=== PATIENT | male | born 1935 | race Caucasian/White ===

== ENCOUNTER 2018-08-07 13:39 | Emergency (ER) | payer OTHER, MEDICAID ==
[~2018-08-07] VITALS: Ht 152.4 cm; Wt 73.0 kg
[2018-08-07 13:48] VITALS: BP 125/57
--- NOTE | 2018-08-07 14:02 | NUR ---
PT AMBULATED WITH WALKER TO ER BED 7
[2018-08-07 14:05] VITALS: BP 125/62
--- NOTE | 2018-08-07 14:15 | NUR ---
REFERRED FROM CLINIC FOR FURTHER EVALUATION TO BILATERAL LOWER EXTREMITIES REDNESS. PT WILL BE ADMITTED TO [facility]. BENNETT LEGS NOTED SWOLLEN. PT AMBULATES WITH WALKER. PT STATES PAIN 5/10 AT THIS TIME. UNABLE TO OBTAINED MEDICAL HISTORY; PT IS A POOR HISTORIAN.
--- NOTE | 2018-08-07 14:24 | NUR ---
DR. RIZO BEDSIDE EVALUATING PT
--- NOTE | 2018-08-07 15:00 | NUR ---
PT CONTINUING TO WALK AROUND DEPT DESPITE BEING ASKED TO RETURN TO ROOM. SECURITY CALLED.
--- NOTE | 2018-08-07 15:23 | NUR ---
SECURITY AT BEDSIDE. PT STATES "I WANT MY FOOT WRAPPED AT WANT TO LEAVE" MD AWARE.
--- NOTE | 2018-08-07 15:27 | NUR ---
PT ELOPED FROM FACILITY.
== END 2018-08-07 15:27 | disposition left against medical advice (07) ==
LOC: MED 13:39
DX: M79.605 Pain in left leg (principal); M79.604 Pain in right leg
CPT/HCPCS: 93971; 99284; Q0092

== ENCOUNTER 2018-08-26 10:27 | Inpatient (IN) | payer OTHER, MEDICAID ==
[~2018-08-26] VITALS: Ht 165.1 cm; Wt 73.5 kg
--- NOTE | 2018-08-26 10:27 | NUR ---
PATIENT BIBA TO BED 3 AT THIS TIME.
[2018-08-26 10:33] VITALS: BP 129/49
--- NOTE | 2018-08-26 10:33 | NUR ---
PT BIBA FROM [facility]. PER EMS PT BP AT FACILITY WAS 99/44 AND PT HAD BEEN WEAK AND DIZZY X2 DAYS. CURRENT BP 129/49. PT HAS CELLULITIS TO LT LEG. WOUND NOTED M48/M60 TANK DRIVER TO L CALF WITH SLOUGH ON WOUND BASE, MACERATED PERIWOUND, MACERATION NOTED TO L LEG. PER EMS, PT HAS A DAILY WOUND CARE AT THE FACILITY FOR PT. PT FULL CLEAR SPEECH. RT EYE REACTIVE TO LIGHT, BRISK 3 MM. NO LT EYE NOTED. EQUAL BENNETT STRENGTH TO UPPER AND LOWER EXTREMITIES. CLEAR EQUAL BENNETT LUNGS UPON AUSCULTATION. PT PLACED ON FULL PRECISION LATHE OPERATOR. ER TO EVALUATE PT.
--- NOTE | 2018-08-26 10:33 | NUR ---
Note undone in EDM - 08/26/18 at 1128 by MEDSM PT MONO FROM [facility] FOR HYPOTENSION. PER EMS PT BP AT FACILITY WAS 99/44 AND PT HAD BEEN WEAK AND DIZZY X2 DAYS. CURRENT BP 129/49. PT HAS CELLULITIS TO LT LEG. WOUND NOTED CIVIL DESIGN SPECIALIST TO L CALF WITH SLOUGH ON WOUND BASE, MACERATED PERIWOUND, MACERATION NOTED TO L LEG. PER EMS, PT HAS A DAILY WOUND CARE AT THE FACILITY FOR PT. PT FULL CLEAR SPEECH. PERRL BRISK 3 MM. EQUAL BENNETT STRENGTH TO UPPER AND LOWER EXTREMITIES. CLEAR EQUAL BENNETT LUNGS UPON AUSCULTATION. PT PLACED ON FULL ARMED CUSTOM PROTECTION OFFICER. ER TO EVALUATE PT.
--- NOTE | 2018-08-26 10:37 | NUR ---
DR COLBY AT BEDSIDE FOR PT EVALUATION
--- NOTE | 2018-08-26 10:45 | NUR ---
UNABLE TO OBTAIN URINE AFTER URETHRAL CATH. WILL TRY AGAIN LATER
--- NOTE | 2018-08-26 11:11 | NUR ---
RT AND LAB AT BEDSIDE
--- NOTE | 2018-08-26 11:25 | NUR ---
ULTRASOUND AT BEDSIDE
[2018-08-26 11:27] LABS: BASOPHILS % (AUTO) 0.3 % (0.0-2.0); HEMATOCRIT 35.4 % (36-52); HEMOGLOBIN 11.7 g/dL (12.0-18.0); LYMPHOCYTES # (AUTO) 0.6 K/uL (2.0-11.5); LYMPHOCYTES % (AUTO) 4.2 % (20.5-51.1); MEAN CORPUSCULAR HEMOGLOBIN 28 pg (27-31); MEAN CORPUSCULAR HGB CONC 33 g/dL (33-37); MEAN CORPUSCULAR VOLUME 85.4 fL (80-94); MONOCYTES # (AUTO) 0.9 K/uL (0.8-1.0); MONOCYTES % (AUTO) 6.5 % (1.7-9.3); PLATELET COUNT (AUTO) 390 K/uL (140-450); RED BLOOD CELL COUNT(AUTO) 4.14 MIL/uL (4.20-6.10); RED CELL DISTRIBUTION WIDTH 13.9 % (11.6-13.7); WHITE BLOOD COUNT (AUTO) 13.5 K/uL (4.8-10.8)
[2018-08-26 11:39] LABS: ACETONE, SERUM NEGATIVE (NEGATIVE)
--- NOTE | 2018-08-26 11:40 | NUR ---
WOUND CULTURE OBTAINED ORDERED TO L LOWER EXTREMITY. CALLED LAB FOR PICKUP
[2018-08-26 11:58] LABS: PROTHROMBIN TIME 10.9 secs (10.8-13.4)
[2018-08-26 12:06] LABS: ANION GAP 15.3 (8-16); CARBON DIOXIDE 25.2 mmol/L (21-32); CHLORIDE 93 mmol/L (98-107); GLUCOSE 114 mg/dL (74-106); POTASSIUM 4.5 mmol/L (3.5-5.1); SODIUM SERUM 129 mmol/L (136-145)
[2018-08-26 12:07] LABS: CREATININE 2.4 mg/dL (0.7-1.3); UREA NITROGEN, BLOOD 41 mg/dL (7-18)
--- NOTE | 2018-08-26 12:15 | NUR ---
UNABLE TO OBTAIN URINE AT THIS TIME
[2018-08-26] MEDS ORDERED: ATI.5 PO (12:24)
[2018-08-26] MEDS ORDERED: VITD1000 PO (12:24)
[2018-08-26] MEDS ORDERED: TRAM50TA1 PO (12:24)
[2018-08-26] MEDS ORDERED: VITA PO (12:24)
[2018-08-26] MEDS ORDERED: LISI10TA11 PO (12:24)
[2018-08-26] MEDS ORDERED: KEN.1C TP (12:24)
[2018-08-26] MEDS ORDERED: ZINC220C12 PO (12:24)
[2018-08-26] MEDS ORDERED: ASPI-1718 PO (12:24)
[2018-08-26] MEDS ORDERED: ATRO1TAB PO (12:24)
[2018-08-26] MEDS ORDERED: ZOLP10TA1 PO (12:24)
[2018-08-26] MEDS ORDERED: ACET-2619 PO (12:24)
[2018-08-26 12:29] LABS: C-REACTIVE PROTEIN QUANT 23.7 mg/dL (0.0-0.9)
[2018-08-26 12:30] LABS: URIC ACID 8.8 mg/dL (2.6-7.2)
[2018-08-26] MEDS ORDERED: NACL 0.9% 1,000 ML IV SCH (12:38)
[2018-08-26] MEDS ORDERED: MORPHINE SULFATE 2 MG/ML SYR IVP PRN (12:40)
[2018-08-26] MEDS ORDERED: ZOLPIDEM 5 MG TAB PO PRN (12:40)
[2018-08-26] MEDS ORDERED: DOCUSATE SODIUM 100 MG GELCAP PO PRN ×2 (12:40)
[2018-08-26] MEDS ORDERED: ONDANSETRON 4 MG/2 ML VIAL IM/IVP PRN ×2 (12:40)
[2018-08-26] MEDS ORDERED: ACETAMINOPHEN 325 MG TAB PO PRN ×2 (12:40)
[2018-08-26] MEDS ORDERED: HYDROcodone/APAP 5/325 MG 1 TAB TAB PO PRN ×2 (12:40)
[2018-08-26] MEDS ORDERED: LORazepam 2 MG/ML VIAL IM/IVP PRN (12:40)
[2018-08-26 12:48] LABS: ASPARTATE AMINOTRANSFERASE 34 U/L (15-37); TOTAL BILIRUBIN 0.5 mg/dL (0.0-1.0)
[2018-08-26 12:49] LABS: ALBUMIN 2.3 g/dL (3.4-5.0)
--- NOTE | 2018-08-26 13:00 | NUR ---
UNABLE TO OBTAIN URINE THROUGH CATH, DR COLBY AWARE
[2018-08-26] MEDS ORDERED: PIPERACILLIN/TAZOBACTAM 3.375 GM in DEXTROSE 5% 50 ML IV ONE (13:15)
--- NOTE | 2018-08-26 13:20 | NUR ---
Patient will be admitted to care of Dr Tan. Admited to TELE. Will go to room 121 A. Belongings list completed. Report to ISIS DE ANDA.
[2018-08-26 13:30] VITALS: BP 136/58
--- NOTE | 2018-08-26 13:30 | NUR ---
PATIENT WAS TRANSFERRED FROM ED IN [facility]. REPORT WAS GIVEN AT BEDSIDE. VS WAS TAKEN. MRSA WAS SWABBED. VISE HAND WAS PLACED. PATIENT WAS AWAKE, ABLE TO ANSWER QUESTIONS APPROPRIATELY, ORIENTATION X 3. RESPIRATION EVEN, UNLABOR ON ROOM AIR. SKIN DRY AND WARM. IV PATENT AND INTACT. PATIENT WAS ORIENTED TO ROOM, STAFF, AND CALL LIGHT. PLAN OF CARE WAS DISCUSSED WITH PATIENT. BED AT LOW POSITION, SIDE RAILS UP. CALL LIGHT WITHIN REACH.
[2018-08-26] MEDS ORDERED: PIPERACILLIN/TAZOBACTAM 3.375 GM VIAL IV ONE (13:54)
[2018-08-26] MEDS: NACL 0.9% 1,000 ML IV SCH (14:05)
[2018-08-26] MEDS ORDERED: traMADol 50 MG TAB PO PRN (14:05)
[2018-08-26] MEDS ORDERED: ACETAMINOPHEN EXTRA STRENGTH 500 MG TAB PO PRN (14:05)
--- NOTE | 2018-08-26 14:18 | NUR ---
URINE SAMPLE WAS COLLECTED AND SENT TO LAB PER ORDER
[2018-08-26 14:23] LABS: THYROID STIMULATING HORMONE 2.42 uIU/mL (0.34-3.74)
[2018-08-26] MEDS ORDERED: CLINICAL MONITORING MC PRN (14:35)
[2018-08-26 15:17] LABS: APPEARANCE,URINE HAZY (CLEAR); BILIRUBIN,URINE NEGATIVE (NEGATIVE); BLOOD, URINE 1+ (NEGATIVE); COLOR,URINE YELLOW (YELLOW); LEUKOCYTE ESTERASE ,URINE 1+ (NEGATIVE); NITRITE, URINE NEGATIVE (NEGATIVE); PH,URINE 5.5 (5.0-9.0); UGLUCOSE NEGATIVE (NEGATIVE)
[2018-08-26 15:22] LABS: BARBITURATE, URINE NEG. ng/ml (NEG <=200); BENZODIAZEPINE, URINE NEG. ng/mL (NEG <=200); CANNABINOID, URINE NEG. ng/mL (NEG <=50); COCAINE, URINE NEG. ng/mL (NEG <=300); OPIATE, URINE NEG. ng/mL (NEG <=2000); PHENCYCLIDINE SCREEN,URINE NEG. ng/mL (NEG <=25)
[2018-08-26 16:00] VITALS: BP 107/39
--- NOTE | 2018-08-26 16:00 | NUR ---
PATIENT WAS SLEEPING COMFORTABLY. RESPIRATION EVEN, UNLABOR ON ROOM AIR. DENIED PAIN AT THIS TIME. NO DISTRESS NOTED AT THIS TIME
[2018-08-26] MEDS ORDERED: DIPHENOXYLATE HCL PO SCH (17:00)
[2018-08-26] MEDS ORDERED: ATROPINE PO SCH (17:00)
[2018-08-26] MEDS: DIPHENOXYLATE /ATROPINE 2.5 MG TAB PO SCH (17:25)
[2018-08-26] MEDS: LORazepam 0.5 MG TAB PO SCH (17:26)
[2018-08-26] MEDS ORDERED: PIPER/TAZO 3.375GM/D5W PREMIX 50 ML IV SCH (18:00)
--- NOTE | 2018-08-26 18:09 | NUR ---
PATIENT WAS SLEEPING COMFORTABLY. RESPIRATION EVEN, UNLABOR NO ROOM AIR. IV PATENT AND INTACT. NO DISTRESS NOTED AT THIS TIME
--- NOTE | 2018-08-26 19:21 | NUR ---
ENDORSEMENT GIVEN TO RADIOTELEPHONE OPERATOR NURSE. PATIENT IS STABLE AT THIS TIME
--- NOTE | 2018-08-26 19:22 | NUR ---
RECEIVED REPORT FROM AM NURSE. PT SLEEPING IN BED. BREATHING UNLABORED ON ROOM AIR. LEFT WRIST 22G INTACT AND INFUSING WELL. PT ON FALL PRECAUTIONS, BED IN LOWEST POSITION, BED ALARM ON. URINAL AT BEDSIDE. CALL LIGHT WITHIN REACH. WILL CONTINUE TO MONITOR.
[2018-08-26 20:05] VITALS: BP 115/88
[2018-08-26] MEDS: PIPER/TAZO 2.25GM/D5W PREMIX 50 ML IV SCH (21:38)
--- NOTE | 2018-08-26 21:38 | NUR ---
MEDICATIONS GIVEN. PT TOLERATED WELL. IT WAS EXPLAINED TO PT THAT HE IS ON BEDREST AND SHOULD USE URINAL WHEN HE NEEDS TO URINATE. PT IS REFUSING TO USE URINAL. CHUCKS ON PT LEFT LEG CHANGED DUE TO SATURATION FROM WEEPING. PT REPOSITIONED FOR COMFORT. CALL LIGHT WITHIN REACH.
[2018-08-26] MEDS: ZOLPIDEM 10 MG TAB PO SCH (21:39)
[2018-08-26] MEDS: TRIAMCINOLONE 0.1% CRM 15 GM TUBE TP SCH (21:41)
--- NOTE | 2018-08-27 00:25 | NUR ---
VITALS TAKEN. PT SLEEPING, BREATHING UNLABORED ON ROOM AIR. NO VISIBLE SIGNS OF DISTRESS.
[2018-08-27 00:30] VITALS: BP 96/54
--- NOTE | 2018-08-27 02:25 | NUR ---
ROUNDED ON PT. PT SLEEPING. NO VISIBLE SIGNS OF DISTRESS.
[2018-08-27] MEDS: NACL 0.9% 1,000 ML IV SCH ×2 (03:39→18:56)
[2018-08-27 04:00] VITALS: BP 131/42
--- NOTE | 2018-08-27 04:25 | NUR ---
VITALS TAKEN. PT IS SLEEPING BUT IS EASILY AWAKEN.
[2018-08-27] MEDS: PIPER/TAZO 2.25GM/D5W PREMIX 50 ML IV SCH ×3 (04:46→17:19)
[2018-08-27 05:53] LABS: CARBON DIOXIDE 22.3 mmol/L (21-32); CHLORIDE 98 mmol/L (98-107); CREATININE 1.4 mg/dL (0.7-1.3); GLUCOSE 97 mg/dL (74-106); POTASSIUM 4.3 mmol/L (3.5-5.1); SODIUM SERUM 133 mmol/L (136-145); UREA NITROGEN, BLOOD 33 mg/dL (7-18)
[2018-08-27 06:00] LABS: MAGNESIUM 1.8 mg/dL (1.8-2.4)
[2018-08-27 06:04] LABS: CHOL/HDL RATIO 2.4 (1-4.5)
[2018-08-27 06:59] LABS: BASOPHILS % (AUTO) 0.1 % (0.0-2.0); EOSINOPHILS % (AUTO) 0.1 % (0.0-4.0); HEMATOCRIT 30.7 % (36-52); HEMOGLOBIN 10.3 g/dL (12.0-18.0); LYMPHOCYTES # (AUTO) 0.7 K/uL (2.0-11.5); LYMPHOCYTES % (AUTO) 5.8 % (20.5-51.1); MEAN CORPUSCULAR HEMOGLOBIN 28 pg (27-31); MEAN CORPUSCULAR HGB CONC 34 g/dL (33-37); MEAN CORPUSCULAR VOLUME 84.8 fL (80-94); MONOCYTES % (AUTO) 8.8 % (1.7-9.3); NEUTROPHILS # (AUTO) 9.7 K/uL (1.8-7.7); NEUTROPHILS % (AUTO) 85.2 % (42.2-75.2); PLATELET COUNT (AUTO) 336 K/uL (140-450); RED BLOOD CELL COUNT(AUTO) 3.62 MIL/uL (4.20-6.10); WHITE BLOOD COUNT (AUTO) 11.3 K/uL (4.8-10.8)
--- NOTE | 2018-08-27 07:15 | NUR ---
ENDORSED PT TO AM NURSE, PT IN STABLE CONDITION AT THIS TIME.
--- NOTE | 2018-08-27 07:30 | NUR ---
PATIENT WAS SLEEPING COMFORTABLY, EASILY AROUSABLE BY NAME. RESPIRATION EVEN, UNLABOR ON ROOM AIR. SKIN DRY AND WARM. IV PATENT AND INTACT. DENIED PAIN AT THIS TIME. PLAN OF CARE WAS DISCUSSED WITH PATIENT. BED AT LOW POSITION, SIDE RAILS UP. CALL LIGHT WITHIN REACH
[2018-08-27 08:00] VITALS: BP 107/62
[2018-08-27] MEDS: TRIAMCINOLONE 0.1% CRM 15 GM TUBE TP SCH (09:00)
--- NOTE | 2018-08-27 09:12 | NUR ---
PATIENT HAS BEEN SCREENED AND CATEGORIZED HIGH NUTRITION RISK. PATIENT WILL BE SEEN WITHIN 1-2 DAYS OF ADMISSION. 08/26/18-08/28/[address]
[2018-08-27] MEDS: CHOLECALCIFEROL 1,000 IU TAB PO SCH (09:16)
[2018-08-27] MEDS: LISINOPRIL 10 MG TAB PO SCH (09:17)
[2018-08-27] MEDS: LACTOBACILLUS RHAMNOSUS GG 1 EACH CAP PO SCH (09:17)
[2018-08-27] MEDS: LORazepam 0.5 MG TAB PO SCH ×3 (09:17→16:27)
[2018-08-27] MEDS: ASPIRIN 81 MG TAB.CHEW PO SCH (09:17)
[2018-08-27] MEDS: ZINC SULF 220 MG CAP PO SCH (09:17)
[2018-08-27] MEDS: DIPHENOXYLATE /ATROPINE 2.5 MG TAB PO SCH ×3 (09:17→16:27)
[2018-08-27] MEDS: VITAMIN A 10,000 IU CAPLF PO SCH (09:18)
--- NOTE | 2018-08-27 10:00 | NUR ---
DR. STOCKTON WAS MADE AWARE PT HAD AN EPISODE A FLUTTER AND WENT BACK TO SR. OK TO CONTINUE TO MONITOR
--- NOTE | 2018-08-27 11:05 | NUR ---
WOUND CARE EVALUATION NOTE: REASON FOR EVALUATION: LLE WOUND SKIN ASSESSMENT DONE WITH THIS 82 Y/O FEMALE PT ADMITTED FROM [facility] TO [facility] WITH INITIAL DX OF LLE PAIN. PAST MEDICAL HX INCLUDES CHRONIC VENOUS STASIS ULCER AND ULTROSOUND DONE WITH RLE PAD. ALL ABOVE INFORMATION OBTAINED FROM ADMISSION H&P. PT IS AWAKE. SKIN IS WARM AND DRY, BLE NO HAIR GROWTH, +2 EDEMA TO LEFT LOWER LEG.BILATERAL DORSAL PEDAL PULSES PRESENT AND DIMINISHED. INCONTINENT OF BM X1 DURING ASSESSMENT. PLAN OF CARE DISCUSSED WITH DR. MARTINEZ, PRIMARY RN AND PT. INTEGUMENTARY: -BILATERAL HEELS DRY STABLE SCABS, MENDOZA-WOUND SKIN INTACT. 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 - LEFT LE WOUND CLEANSE WITH NS, PAT DRY, APPLY XEROFORM DRESSING, COVER WITH DRY DRESSING, WRAP WITH KERLIX ROLLS AND SECURE WITH TAPE Q M-W-F AND PRN IF SOILING, MONITOR PLACEMENT OF DRESSING Q SHIFT -APPLY HEEL PROTECTORS TO RIGHT HEEL AT ALL TIMES -OFFLOAD BILATERAL HEELS BY PLACING PILLOWS UNDER CALVES UNLESS OTHERWISE CONTRAINDICATED -PRESSURE REDISTRIBUTION SURFACE THERAPY BY POSITIONING PILLOWS -TURN AND REPOSITION Q2H, OFFLOAD SACRALCOCCYX BY TURNING RIGHT AND LEFT -CONTINUE TO FOLLOW RD RECOMMENDATIONS ALL ABOVE RECOMMENDATIONS DISCUSSED WITH PRIMARY RN PLEASE CONTACT WOUND CARE NURSE FOR ANY QUESTION AND CHANGE OF WOUND CONDITION.
[2018-08-27 12:00] VITALS: BP 152/54
--- NOTE | 2018-08-27 14:25 | NUR ---
08/27/18 RD INITIAL ASSESSMENT COMPLETED PLEASE REFER TO NUTRITION ASSESSMENT UNDER CARE ACTIVITY FOR ESTIMATED NUTRITIONAL NEEDS. 1. CONTINUE CARDIAC DIET TOLERATED 2. ENCOURAGED PT TO INCREASE FOOD INTAKE DURING HOSPITAL STAY 3. RD TO FOLLOW-UP 2-3 DAYS, HIGH RISK DEVIN CAAL, BENJAMIN
[2018-08-27 16:00] VITALS: BP 101/47
--- NOTE | 2018-08-27 16:00 | NUR ---
PATIENT WAS SLEEPING COMFORTABLY. RESPIRATION EVEN, UNLABOR ON ROOM AIR. PATIENT HAD FEVER 100.6, WILL NOTIFY .
[2018-08-27] MEDS ORDERED: ACETAMINOPHEN 325 MG TAB PO PRN (16:15)
--- NOTE | 2018-08-27 16:30 | NUR ---
DR. STOCKTON WAS MADE AWARE PATIENT IS HAVING FEVER. ORDER WAS RECEIVED. ICE PACKS WERE APPLY TO FOREHEAD
--- NOTE | 2018-08-27 18:00 | NUR ---
PATIENT WAS SLEEPING COMFORTABLY. RESPIRATION EVEN, UNLABOR ON ROOM AIR. NO DISTRESS NOTED AT THIS TIME
--- NOTE | 2018-08-27 19:14 | NUR ---
ENDORSEMENT GIVEN TO CHEMICAL LABORATORY ASSISTANT NURSE. PATIENT IS STABLE AT THIS TIME
--- NOTE | 2018-08-27 19:15 | NUR ---
REPORT RECEIVED FROM AM NURSE. PT SITTING IN BED WATCHING TV. NO C/O DISTRESS, ON ROOM AIR. PT LEFT 22 G INTACT AND INFUSING WELL. ON FALL PRECAUTIONS, BED IN LOW POSITION, BED ALARM ON. PT LEFT LEG WRAPPED, DRESSING DRY AND INTACT. CALL LIGHT WITHIN REACH.
[2018-08-27 20:00] VITALS: BP_SYST 109; BP_SYST 134; BP_DIAS 58
[2018-08-27] MEDS: ZOLPIDEM 10 MG TAB PO SCH (20:20)
--- NOTE | 2018-08-27 20:20 | NUR ---
MEDICATION GIVEN. PT TOLERATED WELL.
--- NOTE | 2018-08-27 22:30 | NUR ---
ROUNDED ON PT. PT SLEEPING, NO VISIBLE SIGNS OF DISTRESS. PT SNORING.
[2018-08-27] MEDS ORDERED: VANCOMYCIN PER PHARMACY MC PRN (22:35)
[2018-08-27] MEDS ORDERED: VANCOMYCIN 1,000 MG in DEXTROSE 5% 250 ML IV SCH (23:30)
[2018-08-28 00:05] VITALS: BP 134/58
--- NOTE | 2018-08-28 00:45 | NUR ---
VITALS TAKEN. PT SLEEPING BUT EASILY AROUSABLE. NO C/O DISCOMFORT.
[2018-08-28] MEDS ORDERED: VANCOMYCIN 1,000 MG VIAL ONE (03:15)
--- NOTE | 2018-08-28 03:32 | NUR ---
ROUNDED ON PT. PT SLEEPING, BREATHING EQUAL AND UNLABORED.
[2018-08-28 04:00] VITALS: BP 118/49
[2018-08-28 06:45] LABS: BASOPHILS % (AUTO) 0.6 % (0.0-2.0); EOSINOPHILS # (AUTO) 0.3 K/uL (0-0.4); EOSINOPHILS % (AUTO) 4.1 % (0.0-4.0); HEMATOCRIT 31.3 % (36-52); HEMOGLOBIN 10.6 g/dL (12.0-18.0); LYMPHOCYTES # (AUTO) 0.9 K/uL (2.0-11.5); LYMPHOCYTES % (AUTO) 11.8 % (20.5-51.1); MEAN CORPUSCULAR HEMOGLOBIN 29 pg (27-31); MEAN CORPUSCULAR HGB CONC 34 g/dL (33-37); MEAN CORPUSCULAR VOLUME 85.4 fL (80-94); MONOCYTES # (AUTO) 0.8 K/uL (0.8-1.0); NEUTROPHILS # (AUTO) 5.4 K/uL (1.8-7.7); NEUTROPHILS % (AUTO) 72.5 % (42.2-75.2); PLATELET COUNT (AUTO) 349 K/uL (140-450); RED BLOOD CELL COUNT(AUTO) 3.67 MIL/uL (4.20-6.10); RED CELL DISTRIBUTION WIDTH 14.2 % (11.6-13.7); WHITE BLOOD COUNT (AUTO) 7.4 K/uL (4.8-10.8)
[2018-08-28 06:49] LABS: CHLORIDE 100 mmol/L (98-107); CREATININE 1.1 mg/dL (0.7-1.3); GLUCOSE 128 mg/dL (74-106); SODIUM SERUM 134 mmol/L (136-145); UREA NITROGEN, BLOOD 23 mg/dL (7-18)
[2018-08-28 07:00] LABS: MAGNESIUM 1.6 mg/dL (1.8-2.4); PHOSPHORUS 2.6 mg/dL (2.5-4.9)
--- NOTE | 2018-08-28 07:05 | NUR ---
ENDORSED PT TO AM NURSE. PT IN STABLE CONDITION.
--- NOTE | 2018-08-28 07:40 | NUR ---
RECEIVED HAND OFF REPORT FROM AUTOMOTIVE GLAZIER NURSE PT IS AWAKE IN BED. PT APPEARS STABLE AND IN NO APPARENT DISTRESS. ALL SAFETY MEASURES ARE IN PLACE WILL CONTINUE TO MONITOR.
[2018-08-28 08:00] VITALS: BP 138/62
[2018-08-28] MEDS: NACL 0.9% 1,000 ML IV SCH ×2 (08:06→23:04)
[2018-08-28] MEDS: VITAMIN A 10,000 IU CAPLF PO SCH (09:00)
--- NOTE | 2018-08-28 09:05 | NUR ---
FREQUENT ROUNDING ON PT PT IS STABLE AND IN NO APPARENT DISTRESS. ALL SAFETY MEASURES ARE IN PLACE. WILL CONTINUE TO MONITOR.
--- NOTE | 2018-08-28 09:30 | NUR ---
PT REFUSED HEPARIN INJECTION. USED GEOSPATIAL ENGINEER PHONE TO INFORM PT OF MEDICATION, ADVERSE AFFECTS AND RISKS IF NOT TAKING MEDICATION. PT STATED THAT HE WANTS A WALKER
[2018-08-28] MEDS: LISINOPRIL 10 MG TAB PO SCH (10:05)
[2018-08-28] MEDS: LORazepam 0.5 MG TAB PO SCH ×3 (10:05→17:39)
[2018-08-28] MEDS: LACTOBACILLUS RHAMNOSUS GG 1 EACH CAP PO SCH (10:05)
[2018-08-28] MEDS: DIPHENOXYLATE /ATROPINE 2.5 MG TAB PO SCH ×3 (10:05→17:39)
[2018-08-28] MEDS: ZINC SULF 220 MG CAP PO SCH (10:06)
[2018-08-28] MEDS: CHOLECALCIFEROL 1,000 IU TAB PO SCH (10:06)
[2018-08-28] MEDS: ASPIRIN 81 MG TAB.CHEW PO SCH (10:06)
[2018-08-28] MEDS ORDERED: MAGNESIUM OXIDE 400 MG TAB PO SCH (11:00)
--- NOTE | 2018-08-28 11:19 | NUR ---
FREQUENT ROUNDING ON PT PT IS STABLE AND IN NO APPARENT DISTRESS. ALL SAFETY MEASURES ARE IN PLACE. WILL CONTINUE TO MONITOR,
[2018-08-28 12:00] VITALS: BP 105/56
--- NOTE | 2018-08-28 13:08 | NUR ---
FREQUENT ROUNDING ON PT PT IS AWAKE IN BED PT IS STABLE AND IN NO APPARENT DISTRESS. ALL SAFETY MEASURES ARE IN PLACE WILL CONTINUE TO MONITOR.
--- NOTE | 2018-08-28 15:25 | NUR ---
FREQUENT ROUNDING PT IS AWAKE IN BED PT APPEARS STABLE AND IN NO APPARENT DISTRESS. ALL SAFETY MEASURES ARE IN PLACE AND WILL CONTINUE TO MONITOR.
[2018-08-28 16:00] VITALS: BP 123/56
--- NOTE | 2018-08-28 17:57 | NUR ---
LAB CALLED WITH CRITICAL RESULT FOR ESBL OF THE URINE AND PSEUDOMONAS AERUGINOSA OF THE WOUND. INFORMED DR. MARTINEZ AND DR. JOHNSON. INFORMED CHARGE NURSE OF POSITIVE RESULTS AND PLACED PT ON CONTACT PRECAUTIONS.
[2018-08-28] MEDS ORDERED: PIPER/TAZO 3.375GM/D5W PREMIX 50 ML IV SCH (18:00)
--- NOTE | 2018-08-28 19:32 | NUR ---
RECIEVED PT.AWAKE ON BED ,NID ,IV SITE DRY AND INTACT ,WITH LLE WOUND DRESSING DRY AND INTACT .V/S WNL .BED IN LOW POSITION , SIDERAILS UPX2 , CALL LIGHT WITHIN REACH ,WILL CONTINUE TO MONITOR.
--- NOTE | 2018-08-28 19:32 | NUR ---
ENDORSED PT TO ZINC PLATING MACHINE OPERATOR NURSE PT IS STABLE AND IN NO APPARENT DISTRESS. ALL SAFETY MEASURES ARE IN PLACE.
[2018-08-28 20:00] VITALS: BP 132/83
--- NOTE | 2018-08-28 21:00 | NUR ---
HEPARIN SQ REFUSED BUT IT IS ALREADY SCANNED IN EMAR ,REFUSAL OF HEPARIN INFORMED TO CHARGE BONITA WHITNEY, WILL CONTINUE TO MONITOR ,CALL LIGHT WITHINN REACH.
--- NOTE | 2018-08-28 22:00 | NUR ---
MADE ROUND, RESTING ON BED , NO COMPLAIN MADE AT THIS TIME ,CALL LIGHT WITHIN REACH .
[2018-08-28] MEDS: ZOLPIDEM 10 MG TAB PO SCH (22:20)
[2018-08-28] MEDS: MEROPENEM 1,000 MG in NACL 0.9% 100 ML IV SCH (22:57)
[2018-08-28] MEDS ORDERED: MEROPENEM 500 MG VIAL IV ONE ×2 (22:58→23:06)
[2018-08-28] MEDS ORDERED: VANCOMYCIN 1,000 MG in DEXTROSE 5% 250 ML IV SCH (23:00)
[2018-08-29] VITALS: BP 130/70
--- NOTE | 2018-08-29 | NUR ---
MADE ROUNDS ,PT IS NOT IN DISTRESS ,IVF INFUSING WELL ,NO COMPLAIN MADE AT THIS TIME .CALL LIGHT WITHIN REACH.
--- NOTE | 2018-08-29 02:00 | NUR ---
MADE ROUNDS , PT SLEEPING ,CALL LIGHT WITHIN REACH.
[2018-08-29 04:00] VITALS: BP 125/80
--- NOTE | 2018-08-29 04:00 | NUR ---
MADE ROUNDS .NID , NO COMPLAIN MADE AT THIS TIME ,CALL LIGHT WITHIN REACH .IVF INFUSING WELL.
[2018-08-29] MEDS ORDERED: MEROPENEM 1,000 MG VIAL IV ONE (06:29)
--- NOTE | 2018-08-29 06:30 | NUR ---
COMPLAINING OF GAS PAIN , S/E BY FREDERICK ,MADE NEW ORDER. WILL CONTINUE TO MONITOR ,CALL LIGHT WITHIN REACH.
[2018-08-29] MEDS: MEROPENEM 1,000 MG in NACL 0.9% 100 ML IV SCH ×3 (06:34→20:16)
[2018-08-29] MEDS ORDERED: SIMETHICONE 80 MG TAB.CHEW PO SCH (07:00)
[2018-08-29] MEDS ORDERED: BISACODYL 5 MG TABEC PO SCH (07:00)
--- NOTE | 2018-08-29 07:15 | NUR ---
ENDORSED TO AM SHIFT FOR CONTINUITY OF CARE.
--- NOTE | 2018-08-29 07:16 | NUR ---
RECEIVED ENDORSEMENT FROM SPACE OFFICER NURSE. PATIENT IS AAOX2, LIBYAN SPEAKING. RESPIRATIONS ARE EVEN AND UNLABORED ON ROOM AIR. PATIENT DENIES ANY PAIN AT THIS TIME. LEFT WRIST 22G INTACT, PATENT, AND INFUSING IVF. PLAN OF CARE WAS REVIEWED WITH PATIENT. PATIENT VERBALIZED UNDERSTANDING. SAFETY MEASURES IN PLACE, CALL LIGHT WITHIN REACH.
[2018-08-29 07:31] LABS: ANION GAP 9.7 (8-16); CHLORIDE 100 mmol/L (98-107); CREATININE 0.8 mg/dL (0.7-1.3); GLUCOSE 134 mg/dL (74-106); POTASSIUM 3.7 mmol/L (3.5-5.1); SODIUM SERUM 134 mmol/L (136-145); UREA NITROGEN, BLOOD 11 mg/dL (7-18)
[2018-08-29 07:33] LABS: MAGNESIUM 1.4 mg/dL (1.8-2.4); PHOSPHORUS 2.1 mg/dL (2.5-4.9)
[2018-08-29 07:35] LABS: BASOPHILS % (AUTO) 0.3 % (0.0-2.0); EOSINOPHILS # (AUTO) 0.1 K/uL (0-0.4); EOSINOPHILS % (AUTO) 1.4 % (0.0-4.0); HEMATOCRIT 33.4 % (36-52); HEMOGLOBIN 11.3 g/dL (12.0-18.0); LYMPHOCYTES # (AUTO) 0.7 K/uL (2.0-11.5); LYMPHOCYTES % (AUTO) 12.9 % (20.5-51.1); MEAN CORPUSCULAR HEMOGLOBIN 29 pg (27-31); MEAN CORPUSCULAR HGB CONC 34 g/dL (33-37); MEAN CORPUSCULAR VOLUME 84.3 fL (80-94); MONOCYTES # (AUTO) 0.6 K/uL (0.8-1.0); MONOCYTES % (AUTO) 11.8 % (1.7-9.3); NEUTROPHILS # (AUTO) 3.9 K/uL (1.8-7.7); NEUTROPHILS % (AUTO) 73.6 % (42.2-75.2); PLATELET COUNT (AUTO) 347 K/uL (140-450); RED BLOOD CELL COUNT(AUTO) 3.96 MIL/uL (4.20-6.10); RED CELL DISTRIBUTION WIDTH 13.7 % (11.6-13.7); WHITE BLOOD COUNT (AUTO) 5.3 K/uL (4.8-10.8)
[2018-08-29 08:00] VITALS: BP 157/61
[2018-08-29] MEDS ORDERED: MAG SULF 2000 MG/WATER PREMIX 50 ML IV ONE (08:10)
--- NOTE | 2018-08-29 08:43 | NUR ---
CONTACTED FRANCISCA MCQUEEN AT [phone], SPOKE TO MOHSEN, SHE SAID NEISHA (MANAGER TECHNICAL SUPPORT) IS NOT AVAILABLE AT THIS TIME. PROVIDED ME FAX NUMBER [phone] TO SEND ALL CLINICALS.
[2018-08-29] MEDS: CHOLECALCIFEROL 1,000 IU TAB PO SCH (08:47)
[2018-08-29] MEDS: ASPIRIN 81 MG TAB.CHEW PO SCH (08:47)
[2018-08-29] MEDS: LACTOBACILLUS RHAMNOSUS GG 1 EACH CAP PO SCH (08:48)
[2018-08-29] MEDS: LORazepam 0.5 MG TAB PO SCH ×3 (08:49→17:44)
[2018-08-29] MEDS: VITAMIN A 10,000 IU CAPLF PO SCH (08:49)
[2018-08-29] MEDS: LISINOPRIL 10 MG TAB PO SCH (08:49)
[2018-08-29] MEDS: ZINC SULF 220 MG CAP PO SCH (08:49)
[2018-08-29] MEDS ORDERED: SIMETHICONE 80 MG TAB.CHEW PO PRN (09:00)
--- NOTE | 2018-08-29 09:00 | NUR ---
ADMINISTERED SCHEDULED MEDICATIONS. PATIENT TOLERATED WELL. NO OTHER NEEDS AT THIS TIME.
--- NOTE | 2018-08-29 11:20 | NUR ---
CONTACTED BECCA GALLARDO AT [phone], SPOKE TO RUTH. MADE HER AWARE OF THE DC PLAN. ALL CLINICALS FAXED TO [phone].
--- NOTE | 2018-08-29 11:20 | NUR ---
PATIENT RESTING IN BED. DENIES ANY PAIN, NO OTHER NEEDS AT THIS TIME.
--- NOTE | 2018-08-29 13:05 | NUR ---
ADMINISTERED SCHEDULED MEDICATIONS. PATIENT TOLERATED WELL. NO OTHER NEEDS AT THIS TIME.
--- NOTE | 2018-08-29 13:05 | NUR ---
NEW ORDERS FOR ANTIBIOTICS FAXED TO BECCA GALLARDO AT [phone]. CALLED JAY OF [employer] AT [phone], SHE SAID SHE WILL RELAY THE MESSAGE TO RUTH.
--- NOTE | 2018-08-29 14:15 | NUR ---
PICC LINE CONSENT AND PROCEDURE EXPLAINED TO PATIENT BY DR. KELLY. PATIENT STATED THAT GODMOTHER WILL DECIDE FOR HIM. TRYING TO GET IN CONTACT WITH HER. WILL FOLLOW UP. NO OTHER NEEDS AT THIS TIME.
--- NOTE | 2018-08-29 14:28 | NUR ---
PER RUTH OF [facility], THEY ARE ABLE TO TAKE THE PATIENT TOMORROW 08/29/18. PATIENT WILL GO TO ROOM 2B AND ACCEPTING DOCTOR WILL WILL DR. KWONG. PER RUTH IF WILL HAVE PROBLEMS WITH TRANSPORTATION, WE CAN CALL HER ON HER CELLPHONE [phone]. CHARGE NURSE TOM MADE AWARE.
--- NOTE | 2018-08-29 15:40 | NUR ---
RECEIVED CALL FROM PICC LINE ISIS RIVAS, REQUESTED CLARIFICATION IF PICC OR MIDLINE. CALLED DR. STOCKTON TO CLARIFY. PATIENT IS SLEEPING, EASILY AROUSABLE. DENIES ANY PAIN. NO OTHER NEEDS AT THIS TIME, WILL CONTINUE TO MONITOR.
[2018-08-29 16:00] VITALS: BP 157/67
--- NOTE | 2018-08-29 17:15 | NUR ---
POWER OF FOLLOW UP CLERK NOBLE (GODMOTHER) ARRIVED TO SIGN CONSENT FOR PICC. NO OTHER NEEDS AT THIS TIME.
--- NOTE | 2018-08-29 18:30 | NUR ---
PICC LINE NURSE HERE TO INSERT PICC. TIME OUT WAS COMPLETED. PATIENT IS AWARE AND AGREES TO PROCEDURE. NO OTHER NEEDS AT THIS TIME.
--- NOTE | 2018-08-29 19:29 | NUR ---
ENDORSED TO MARKETING OPERATIONS COORDINATOR NURSE FOR CONTINUITY OF CARE. PATIENT IS STABLE AT THIS TIME. PER ROB PICC RN., PICC IS READY FOR USE.
--- NOTE | 2018-08-29 19:30 | NUR ---
RECEIVED BEDSIDE REPORT FROM DAY SHIFT RN. PT IS AAOX2. ON ROOM AIR RESPIRATIONS ARE EQUAL ND UNLABORED. ON CONTACT ISOLATION. PICC LINE DOUBLE LUMEN ON RUE SL NOW OK TO USE. IV ON L WRIST 22G NS AT 20M/L. PT WITH CELLULITIS ON LLE HAS ULNAR BOOT C/D/I. PER NURSE NO NEED TO CHANGE DRESSING UNTIL HES D/C BACK TO [facility]. CAP REFILL < 3SEC. PLAN OF CARE DISCUSSED. SAFETY MEASURES IN PLACE. WILL CONTINUE TO MONITOR
[2018-08-29] MEDS: ZOLPIDEM 10 MG TAB PO SCH (20:16)
--- NOTE | 2018-08-29 20:16 | NUR ---
SCHEDULED MEDICATIONS WERE GIVEN. PATIENT REFUSED HEPARIN INJECTION. EDUCATED ON PURPOSE AND S/E OF NOT TAKING. PT VERBALIZED UNDERSTANDING. CALL LIGHT IS WITHIN REACH. WILL ROUND FREQUENTLY.
--- NOTE | 2018-08-29 22:00 | NUR ---
PATIENT IS SLEEPING. NO S/S OF DISTRESS.CALL LIGHT IS WITHIN REACH. WILL ROUND FREQUENTLY.
[2018-08-29] MEDS ORDERED: VANCOMYCIN 1GM/DEXT 5% PREMIX 200 ML IV SCH (23:00)
[2018-08-29 23:37] VITALS: BP 140/50
--- NOTE | 2018-08-29 23:38 | NUR ---
VITAL SIGNS ARE WITHIN NORMAL LIMITS. ALL NEED MET AT THIS TIME. WILL CONTINUE TO MONITOR.
--- NOTE | 2018-08-30 02:00 | NUR ---
PATIENT IS SLEEPING COMFORTABLY IN BED. NO S/S OF DISTRESS. CALL LIGHT IS WITHIN REACH.
--- NOTE | 2018-08-30 04:33 | NUR ---
PATIENT WAS CLEANED AND REPOSITION FOR COMFORT. ALL NEEDS MET AT THIS TIME. WILL CONTINUE TO MONITOR.
[2018-08-30] MEDS: MEROPENEM 1,000 MG in NACL 0.9% 100 ML IV SCH ×2 (05:09→12:13)
--- NOTE | 2018-08-30 05:09 | NUR ---
ANTIBIOTIC NOW INFUSING PER ORDER. NO S/S OF DISTRESS. ALL NEEDS MET AT THIS TIME.
--- NOTE | 2018-08-30 07:29 | NUR ---
GAVE BEDSIDE REPORT TO DAY SHIFT RN. PT ENDORSED IN STABLE CONDITION.
--- NOTE | 2018-08-30 07:32 | NUR ---
RECEIVED BEDSIDE REPORT FROM SUPERVISOR ENGINE REPAIR NURSE. AOX3, NIGERIEN SPEAKING PRIMARILY. INTERACTING APPROPRIATELY. NO C/O PAIN OR DISCOMFORT. AWAKE AND RESTING IN BED. RESPIRATIONS EVEN AND UNLABORED ON RA. IV SITE PATENT AND ASYMPTOMATIC, INFUSING IVF PER MD ORDERS. UPDATED BOARD AND EXPLAINED POC. ALL SAFETY PRECAUTIONS IN PLACE, WILL CONTINUE TO MONITOR.
[2018-08-30 08:00] VITALS: BP 153/67
[2018-08-30] MEDS: NACL 0.9% 1,000 ML IV SCH (08:06)
[2018-08-30] MEDS ORDERED: MERO1PDS2 IV (08:13)
[2018-08-30] MEDS ORDERED: VAN1PM IV (08:15)
[2018-08-30] MEDS ORDERED: LACT1.4C PO (08:16)
[2018-08-30] MEDS ORDERED: MAG SULF 2000 MG/WATER PREMIX 100 ML IV ONE (08:40)
[2018-08-30] MEDS: LACTOBACILLUS RHAMNOSUS GG 1 EACH CAP PO SCH (09:28)
[2018-08-30] MEDS: CHOLECALCIFEROL 1,000 IU TAB PO SCH (09:28)
[2018-08-30] MEDS: ZINC SULF 220 MG CAP PO SCH (09:28)
[2018-08-30] MEDS: LISINOPRIL 10 MG TAB PO SCH (09:28)
[2018-08-30] MEDS: ASPIRIN 81 MG TAB.CHEW PO SCH (09:28)
[2018-08-30] MEDS: LORazepam 0.5 MG TAB PO SCH ×2 (09:29→12:19)
[2018-08-30] MEDS: VITAMIN A 10,000 IU CAPLF PO SCH (09:29)
--- NOTE | 2018-08-30 09:39 | NUR ---
PATIENT REFUSED SUBQ HEPARIN. EXPLAINED INDICATION FOR WELL RISKS AND BENEFITS. PT CONTINUES TO REFUSE.
--- NOTE | 2018-08-30 09:45 | NUR ---
NOTIFIED DR. KELLEY THAT 2G MAG RIDER WAS ADMINISTERED AFTER MOST RECENT LAB DRAW. ASKED IF 4G MAG RIDER SHOULD STILL BE ADMINISTERED.
--- NOTE | 2018-08-30 10:06 | NUR ---
ROOM 15 B AT [facility] PER SIMON.
--- NOTE | 2018-08-30 12:17 | NUR ---
SCHEDULED MEDICATIONS ADMINISTERED. AT BEDSIDE TO ASSESS AND CHANGE LLE CELLULITIS DRESSING. Addendum: 08/30/18 at 1220 by Leigha Oswald Meng, RN BIOSTATISTICS TEACHER
[2018-08-30 14:11] VITALS: BP 153/67
--- NOTE | 2018-08-30 14:26 | NUR ---
CALLED PERSON TO NOTIFY NOBLE VELASQUEZ [phone] AND LEFT VOICEMAIL REGARDING PLAN TO TRANSFER TO [facility] AT 3:30PM TODAY. LEFT CALLBACK NUMBER.
--- NOTE | 2018-08-30 14:39 | NUR ---
REPORT GIVEN TO MARCUS MARINELLI AT [facility].
--- NOTE | 2018-08-30 15:09 | NUR ---
ATTEMPTED TO GIVE D/C TEACHING VIA TORIA PACKING AND FINAL ASSEMBLY SUPERVISOR ALIN #[id number]. PATIENT STATING THAT HE DOES NOT UNDERSTAND HER. ASKED PACKING AND FINAL ASSEMBLY SUPERVISOR TO INTRODUCE HERSELF ANOTHER TIME BUT PT CONTINUES TO STATE HE DOES NOT UNDERSTAND. PT IS [place], DENIES THAT HE IS UNABLE TO HEAR PACKING AND FINAL ASSEMBLY SUPERVISOR. CONTINUES TO STATE HE DOES NOT UNDERSTAND. PT IS UNABLE TO VERBALIZE CURRENT LOCATION, HOWEVER STATES NAME AND CORRECTLY, AND STATES "NEXT YEAR WILL BE 2019" WHEN ASKED THE YEAR.
--- NOTE | 2018-08-30 15:12 | NUR ---
PT ALSO STATES HE DOES NOT KNOW HOW TO WRITE, WHEN ASKED IF HE CAN SIGN D/C PAPERS.
--- NOTE | 2018-08-30 15:45 | NUR ---
PATIENT PICKED UP BY [facility] IN STABLE CONDITION. Addendum: 08/30/18 at 1553 by Leigha Oswald Meng, RN ALL PERSONAL BELONGINGS AND D/C PAPERWORK WITH PATIENT.
[2018-08-30 16:00] VITALS: BP 139/57
== END 2018-08-30 15:45 | DRG 871 ==
LOC: MED 10:27 → MTU 12:50
PROVIDERS: ADMIT General Practice; ATTEND General Practice
PROC: 02HV33Z Insertion of Infusion Device into Superior Vena Cava, Percutaneous Approach (ICD-10-PCS; principal; 2018-08-29)
PROC: B548ZZA Ultrasonography of Superior Vena Cava, Guidance (ICD-10-PCS; 2018-08-29)
DX: A41.9 Sepsis, unspecified organism (principal); N17.0 Acute kidney failure with tubular necrosis; E43 Unspecified severe protein-calorie malnutrition; L03.116 Cellulitis of left lower limb; E87.1 Hypo-osmolality and hyponatremia; Z68.27 Body mass index [BMI] 27.0-27.9, adult; I10 Essential (primary) hypertension; M19.90 Unspecified osteoarthritis, unspecified site; F41.9 Anxiety disorder, unspecified; R26.81 Unsteadiness on feet; F03.90 Unspecified dementia, unspecified severity, without behavioral disturbance, psychotic disturbance, mood disturbance, and anxiety; I87.8 Other specified disorders of veins; H91.90 Unspecified hearing loss, unspecified ear; F41.1 Generalized anxiety disorder; G47.00 Insomnia, unspecified; E87.8 Other disorders of electrolyte and fluid balance, not elsewhere classified; D64.9 Anemia, unspecified; M47.9 Spondylosis, unspecified; K52.9 Noninfective gastroenteritis and colitis, unspecified; R31.9 Hematuria, unspecified; I73.9 Peripheral vascular disease, unspecified; B96.4 Proteus (mirabilis) (morganii) as the cause of diseases classified elsewhere; B96.5 Pseudomonas (aeruginosa) (mallei) (pseudomallei) as the cause of diseases classified elsewhere; E83.42 Hypomagnesemia; I87.2 Venous insufficiency (chronic) (peripheral); E86.0 Dehydration
CPT/HCPCS: 36415; 36600; 71045; 73590; 74018; 80048; 80053; 80305; 81001; 82009; 82140; 82550; 82553; 82803; 82948; 83036; 83605; 83735; 83874; 83880; 84100; 84443; 84484; 84550; 85025; 85379; 85610; 85651; 85730; 86140; 87040; 87070; 87081; 87086; 87186; 93005; 93925; 93971; 97110; 97116; 97161-GP; 97530; 99285; C1751; C1758; G0482; J1644; J2185; J2543; J3370; J3475; J7030; J7060; Q0092

== ENCOUNTER 2022-02-27 17:30 | Inpatient (IN) | payer OTHER ==
[~2022-02-27] VITALS: Ht 152.4 cm; Wt 57.2 kg
[~2022-02-27 17:30] MED LIST: ACET-2619 PO; ASPI-1822 PO; ATI.5 PO; ATRO1TAB PO; CHOL100084 PO; KEN.1C TP; LACT1.4C PO; LISI-486 PO; MERO1VIA15 IV; TRAM-748 PO; VAN1PM IV; ZINC220C28 PO; ZOLP10TA1 PO; [UNRECOGNIZED DRUG - CODE] PO
[2022-02-27 17:39] VITALS: BP 110/55
[2022-02-27 18:55] LABS: BASOPHILS % (AUTO) 0.8 % (0.0-2.0); EOSINOPHILS # (AUTO) 0.1 K/uL (0-0.4); EOSINOPHILS % (AUTO) 2.3 % (0.0-4.0); HEMATOCRIT 36.6 % (36-52); HEMOGLOBIN 12.6 g/dL (12.0-18.0); LYMPHOCYTES # (AUTO) 0.6 K/uL (2.0-11.5); LYMPHOCYTES % (AUTO) 11.4 % (20.5-51.1); MEAN CORPUSCULAR HEMOGLOBIN 31 pg (27-31); MEAN CORPUSCULAR HGB CONC 34 g/dL (33-37); MEAN CORPUSCULAR VOLUME 88.5 fL (80-94); MONOCYTES # (AUTO) 1.1 K/uL (0.8-1.0); NEUTROPHILS # (AUTO) 3.6 K/uL (1.8-7.7); NEUTROPHILS % (AUTO) 65.5 % (42.2-75.2); PLATELET COUNT (AUTO) 421 K/uL (140-450); RED BLOOD CELL COUNT(AUTO) 4.14 MIL/uL (4.20-6.10); RED CELL DISTRIBUTION WIDTH 13.9 % (11.6-13.7); WHITE BLOOD COUNT (AUTO) 5.5 K/uL (4.8-10.8)
[2022-02-27 19:21] LABS: ALBUMIN 2.5 g/dL (3.4-5.0); ASPARTATE AMINOTRANSFERASE 37 U/L (15-37); CARBON DIOXIDE 25.8 mmol/L (21-32); CHLORIDE 100 mmol/L (98-107); CREATININE 1.5 mg/dL (0.6-1.3); GLUCOSE 132 mg/dL (74-106); POTASSIUM 3.8 mmol/L (3.5-5.1); SODIUM SERUM 137 mmol/L (136-145); TOTAL BILIRUBIN 0.3 mg/dL (0.0-1.0); UREA NITROGEN, BLOOD 34 mg/dL (7-18)
[2022-02-27] MEDS ORDERED: ATOR10TA PO (19:26)
[2022-02-27] MEDS ORDERED: ASPI-1749 PO ×2 (19:26)
[2022-02-27] MEDS ORDERED: ASCO500T95 PO (19:26)
[2022-02-27] MEDS ORDERED: MIRT-92 PO (19:26)
[2022-02-27] MEDS ORDERED: COLC-30 PO (19:26)
[2022-02-27] MEDS ORDERED: NUTR30LI2 PO (19:26)
[2022-02-27] MEDS ORDERED: RIVA2.5T PO (19:26)
[2022-02-27] MEDS ORDERED: ZINC50CA3 PO (19:26)
[2022-02-27] MEDS ORDERED: FURO-570 PO (19:26)
[2022-02-27] MEDS ORDERED: MULT-2253 PO (19:26)
[2022-02-27] MEDS ORDERED: LISI-486 PO (19:26)
[2022-02-27] MEDS ORDERED: DONE5TAB6 PO (19:26)
[2022-02-27] MEDS ORDERED: [UNRECOGNIZED DRUG - CODE] PO (19:26)
[2022-02-27] MEDS ORDERED: NACL 0.9% 1,000 ML IV ONE (21:05)
[2022-02-27] MEDS ORDERED: ONDANSETRON 4 MG/2 ML VIAL IM/IVP PRN (22:15)
[2022-02-27] MEDS ORDERED: ZOLPIDEM 5 MG TAB PO PRN (22:15)
[2022-02-27] MEDS ORDERED: guaiFENesin DM 200/20 MG-10 ML 10 ML UDC PO PRN (22:15)
[2022-02-27] MEDS ORDERED: DOCUSATE SODIUM 100 MG GELCAP PO PRN (22:15)
[2022-02-27] MEDS ORDERED: ACETAMINOPHEN 325 MG TAB PO PRN (22:15)
[2022-02-27] MEDS ORDERED: HYDROcodone/APAP 7.5/325 MG 1 TAB PO PRN (22:15)
[2022-02-27] MEDS: NACL 0.9% 1,000 ML IV SCH (23:04)
[2022-02-27 23:15] LABS: CHOL/HDL RATIO 3.4 (1-4.5); FREE T4 (FREE THYROXINE) 2.08 ng/dL (0.76-1.46); MAGNESIUM 1.9 mg/dL (1.8-2.4); PHOSPHORUS 3.6 mg/dL (2.5-4.9); THYROID STIMULATING HORMONE 0.58 uIU/mL (0.34-3.74)
[2022-02-28 00:02] LABS: PROTHROMBIN TIME 10.6 secs (10.8-13.4)
[2022-02-28 01:55] VITALS: BP 119/84
[2022-02-28 04:00] VITALS: BP 128/62
[2022-02-28 05:54] LABS: BASOPHILS % (AUTO) 0.5 % (0.0-2.0); EOSINOPHILS % (AUTO) 0.2 % (0.0-4.0); HEMATOCRIT 33.2 % (36-52); HEMOGLOBIN 11.6 g/dL (12.0-18.0); LYMPHOCYTES # (AUTO) 0.6 K/uL (2.0-11.5); LYMPHOCYTES % (AUTO) 8.6 % (20.5-51.1); MEAN CORPUSCULAR HEMOGLOBIN 31 pg (27-31); MEAN CORPUSCULAR HGB CONC 35 g/dL (33-37); MEAN CORPUSCULAR VOLUME 88.1 fL (80-94); MONOCYTES # (AUTO) 1.1 K/uL (0.8-1.0); MONOCYTES % (AUTO) 14.9 % (1.7-9.3); NEUTROPHILS # (AUTO) 5.5 K/uL (1.8-7.7); NEUTROPHILS % (AUTO) 75.8 % (42.2-75.2); PLATELET COUNT (AUTO) 408 K/uL (140-450); RED BLOOD CELL COUNT(AUTO) 3.77 MIL/uL (4.20-6.10); RED CELL DISTRIBUTION WIDTH 13.7 % (11.6-13.7); WHITE BLOOD COUNT (AUTO) 7.2 K/uL (4.8-10.8)
[2022-02-28] MEDS: NACL 0.9% 1,000 ML IV SCH ×3 (06:19→22:15)
[2022-02-28 06:21] LABS: CARBON DIOXIDE 26.8 mmol/L (21-32); CHLORIDE 106 mmol/L (98-107); CREATININE 1.1 mg/dL (0.6-1.3); GLUCOSE 133 mg/dL (74-106); POTASSIUM 3.8 mmol/L (3.5-5.1); SODIUM SERUM 141 mmol/L (136-145); UREA NITROGEN, BLOOD 29 mg/dL (7-18)
[2022-02-28 08:00] VITALS: BP 136/95
[2022-02-28] MEDS: PANTOPRAZOLE 40 MG TABEC PO SCH (08:56)
[2022-02-28] MEDS: ASPIRIN 81 MG TAB.CHEW PO SCH (08:56)
[2022-02-28] MEDS: lisinopriL 10 MG TAB PO SCH (08:57)
[2022-02-28] MEDS ORDERED: RIVAROXABAN 2.5 MG PO SCH (09:00)
[2022-02-28] MEDS: RIVAROXABAN 10 MG TAB PO SCH ×2 (09:01→21:02)
[2022-02-28 12:00] VITALS: BP 136/95
[2022-02-28] MEDS: PIPERACILLIN/TAZOBACTAM 3.375 GM in DEXTROSE 5% 50 ML IV SCH ×2 (12:29→21:06)
[2022-02-28 16:00] VITALS: BP 115/73
[2022-02-28 19:27] LABS: APPEARANCE,URINE SL CLOUDY (CLEAR); BILIRUBIN,URINE NEGATIVE (NEGATIVE); BLOOD, URINE 3+ (NEGATIVE); COLOR,URINE YELLOW (YELLOW); LEUKOCYTE ESTERASE ,URINE 3+ (NEGATIVE); NITRITE, URINE POSITIVE (NEGATIVE); UGLUCOSE NEGATIVE (NEGATIVE)
[2022-02-28 20:00] VITALS: BP 143/74
[2022-02-28 20:12] LABS: WBC,URINE 16-25 (MOD) /HPF (0-5)
[2022-02-28] MEDS: MIRTAZAPINE 15 MG TAB PO SCH (21:03)
[2022-02-28] MEDS: ATORVASTATIN 20 MG TAB PO SCH (21:04)
[2022-03-01] VITALS: BP 138/85
[2022-03-01] MEDS: NACL 0.9% 1,000 ML IV SCH ×4 (00:08→22:15)
[2022-03-01 04:00] VITALS: BP 155/71
[2022-03-01] MEDS: PIPERACILLIN/TAZOBACTAM 3.375 GM in DEXTROSE 5% 50 ML IV SCH ×3 (04:52→21:49)
[2022-03-01 06:01] LABS: BASOPHILS % (AUTO) 0.4 % (0.0-2.0); EOSINOPHILS % (AUTO) 0.2 % (0.0-4.0); HEMATOCRIT 28.9 % (36-52); HEMOGLOBIN 10.1 g/dL (12.0-18.0); LYMPHOCYTES # (AUTO) 0.9 K/uL (2.0-11.5); MEAN CORPUSCULAR HEMOGLOBIN 31 pg (27-31); MEAN CORPUSCULAR HGB CONC 35 g/dL (33-37); MEAN CORPUSCULAR VOLUME 88.9 fL (80-94); MONOCYTES # (AUTO) 0.9 K/uL (0.8-1.0); MONOCYTES % (AUTO) 9.3 % (1.7-9.3); NEUTROPHILS # (AUTO) 7.4 K/uL (1.8-7.7); NEUTROPHILS % (AUTO) 80.1 % (42.2-75.2); PLATELET COUNT (AUTO) 364 K/uL (140-450); RED BLOOD CELL COUNT(AUTO) 3.25 MIL/uL (4.20-6.10); RED CELL DISTRIBUTION WIDTH 13.8 % (11.6-13.7); WHITE BLOOD COUNT (AUTO) 9.3 K/uL (4.8-10.8)
[2022-03-01 06:30] LABS: ANION GAP 10.7 (8-16); CARBON DIOXIDE 24.6 mmol/L (21-32); CHLORIDE 110 mmol/L (98-107); CREATININE 0.9 mg/dL (0.6-1.3); GLUCOSE 105 mg/dL (74-106); POTASSIUM 3.3 mmol/L (3.5-5.1); SODIUM SERUM 142 mmol/L (136-145); UREA NITROGEN, BLOOD 17 mg/dL (7-18)
[2022-03-01 08:00] VITALS: BP 152/48
[2022-03-01 08:07] LABS: T4 (THYROXINE) 8.6 ug/dL (4.5-12.0)
[2022-03-01] MEDS: lisinopriL 10 MG TAB PO SCH ×2 (09:00→10:41)
[2022-03-01] MEDS: ASPIRIN 81 MG TAB.CHEW PO SCH (10:39)
[2022-03-01] MEDS: PANTOPRAZOLE 40 MG TABEC PO SCH (10:39)
[2022-03-01] MEDS: RIVAROXABAN 10 MG TAB PO SCH ×2 (10:41→21:00)
[2022-03-01] MEDS: POTASSIUM CHLORIDE 10 MEQ TABER PO PRN ×2 (10:42→10:50)
[2022-03-01 12:52] VITALS: BP 125/34
[2022-03-01 18:37] VITALS: BP 131/45
[2022-03-01 20:00] VITALS: BP 134/60
[2022-03-01] MEDS: MIRTAZAPINE 15 MG TAB PO SCH (21:00)
[2022-03-01] MEDS: ATORVASTATIN 20 MG TAB PO SCH (21:00)
[2022-03-01] MEDS ORDERED: CRUSHER, PILL MC ONE (21:24)
[2022-03-01] MEDS ORDERED: PIPERACILLIN/TAZOBACTAM 3.375 GM VIAL IV ONE (21:34)
[2022-03-02] MEDS: NACL 0.9% 1,000 ML IV SCH ×3 (00:17→21:51)
[2022-03-02 04:00] VITALS: BP 130/63
[2022-03-02] MEDS: PIPERACILLIN/TAZOBACTAM 3.375 GM in DEXTROSE 5% 50 ML IV SCH ×3 (05:55→21:50)
[2022-03-02 05:59] LABS: BASOPHILS # (AUTO) 0.1 K/uL (0.00-0.22); BASOPHILS % (AUTO) 0.7 % (0.0-2.0); EOSINOPHILS % (AUTO) 0.4 % (0.0-4.0); HEMATOCRIT 25.7 % (36-52); HEMOGLOBIN 9.3 g/dL (12.0-18.0); LYMPHOCYTES # (AUTO) 0.7 K/uL (2.0-11.5); LYMPHOCYTES % (AUTO) 8.3 % (20.5-51.1); MEAN CORPUSCULAR HEMOGLOBIN 32 pg (27-31); MEAN CORPUSCULAR HGB CONC 36 g/dL (33-37); MEAN CORPUSCULAR VOLUME 88.2 fL (80-94); MONOCYTES # (AUTO) 0.6 K/uL (0.8-1.0); NEUTROPHILS # (AUTO) 7.4 K/uL (1.8-7.7); NEUTROPHILS % (AUTO) 83.6 % (42.2-75.2); PLATELET COUNT (AUTO) 328 K/uL (140-450); RED BLOOD CELL COUNT(AUTO) 2.92 MIL/uL (4.20-6.10); RED CELL DISTRIBUTION WIDTH 14.2 % (11.6-13.7); WHITE BLOOD COUNT (AUTO) 8.8 K/uL (4.8-10.8)
[2022-03-02 06:46] LABS: ANION GAP 13.8 (8-16); CARBON DIOXIDE 22.7 mmol/L (21-32); CHLORIDE 109 mmol/L (98-107); CREATININE 0.8 mg/dL (0.6-1.3); GLUCOSE 89 mg/dL (74-106); POTASSIUM 3.5 mmol/L (3.5-5.1); SODIUM SERUM 142 mmol/L (136-145); UREA NITROGEN, BLOOD 12 mg/dL (7-18)
[2022-03-02] MEDS: ASPIRIN 81 MG TAB.CHEW PO SCH (09:00)
[2022-03-02] MEDS: lisinopriL 10 MG TAB PO SCH (09:00)
[2022-03-02] MEDS: PANTOPRAZOLE 40 MG TABEC PO SCH (09:00)
[2022-03-02] MEDS: RIVAROXABAN 10 MG TAB PO SCH ×2 (09:22→21:48)
[2022-03-02] MEDS: MIRTAZAPINE 15 MG TAB PO SCH (21:47)
[2022-03-02] MEDS: ATORVASTATIN 20 MG TAB PO SCH (21:47)
[2022-03-03] VITALS: BP 132/72
[2022-03-03] MEDS: PIPERACILLIN/TAZOBACTAM 3.375 GM in DEXTROSE 5% 50 ML IV SCH ×3 (05:07→20:38)
[2022-03-03 06:24] LABS: BASOPHILS # (AUTO) 0.1 K/uL (0.00-0.22); BASOPHILS % (AUTO) 1.1 % (0.0-2.0); EOSINOPHILS # (AUTO) 0.1 K/uL (0-0.4); EOSINOPHILS % (AUTO) 2.4 % (0.0-4.0); HEMATOCRIT 27.9 % (36-52); HEMOGLOBIN 9.9 g/dL (12.0-18.0); MEAN CORPUSCULAR HEMOGLOBIN 32 pg (27-31); MEAN CORPUSCULAR HGB CONC 36 g/dL (33-37); MEAN CORPUSCULAR VOLUME 88.5 fL (80-94); MONOCYTES # (AUTO) 0.6 K/uL (0.8-1.0); NEUTROPHILS # (AUTO) 3.5 K/uL (1.8-7.7); NEUTROPHILS % (AUTO) 66.3 % (42.2-75.2); PLATELET COUNT (AUTO) 380 K/uL (140-450); RED BLOOD CELL COUNT(AUTO) 3.16 MIL/uL (4.20-6.10); WHITE BLOOD COUNT (AUTO) 5.3 K/uL (4.8-10.8)
[2022-03-03] MEDS: NACL 0.9% 1,000 ML IV SCH ×3 (06:24→16:10)
[2022-03-03 06:36] LABS: ANION GAP 10.7 (8-16); CARBON DIOXIDE 22.8 mmol/L (21-32); CHLORIDE 110 mmol/L (98-107); CREATININE 0.8 mg/dL (0.6-1.3); GLUCOSE 85 mg/dL (74-106); POTASSIUM 3.5 mmol/L (3.5-5.1); SODIUM SERUM 140 mmol/L (136-145); UREA NITROGEN, BLOOD 10 mg/dL (7-18)
[2022-03-03 07:22] LABS: LYMPHOCYTES % (AUTO) 19.7 % (20.5-51.1); MONOCYTES % (AUTO) 10.5 % (1.7-9.3)
[2022-03-03 08:00] VITALS: BP 151/61
[2022-03-03] MEDS: PANTOPRAZOLE 40 MG TABEC PO SCH (10:22)
[2022-03-03] MEDS: ASPIRIN 81 MG TAB.CHEW PO SCH (10:22)
[2022-03-03] MEDS: lisinopriL 10 MG TAB PO SCH (10:23)
[2022-03-03] MEDS: RIVAROXABAN 10 MG TAB PO SCH ×2 (10:25→20:36)
[2022-03-03 16:00] VITALS: BP 142/57
[2022-03-03] MEDS: POTASSIUM CHLORIDE 10 MEQ TABER PO PRN (19:06)
[2022-03-03] MEDS: MIRTAZAPINE 15 MG TAB PO SCH (20:36)
[2022-03-03] MEDS: ATORVASTATIN 20 MG TAB PO SCH (20:37)
[2022-03-03 21:31] VITALS: BP 131/42
[2022-03-04 04:13] VITALS: BP 135/65
[2022-03-04] MEDS: PIPERACILLIN/TAZOBACTAM 3.375 GM in DEXTROSE 5% 50 ML IV SCH ×3 (05:01→21:43)
[2022-03-04 05:56] LABS: BASOPHILS % (AUTO) 0.6 % (0.0-2.0); EOSINOPHILS # (AUTO) 0.1 K/uL (0-0.4); EOSINOPHILS % (AUTO) 1.9 % (0.0-4.0); HEMATOCRIT 30.1 % (36-52); HEMOGLOBIN 10.4 g/dL (12.0-18.0); LYMPHOCYTES # (AUTO) 1.6 K/uL (2.0-11.5); LYMPHOCYTES % (AUTO) 24.7 % (20.5-51.1); MEAN CORPUSCULAR HEMOGLOBIN 31 pg (27-31); MEAN CORPUSCULAR HGB CONC 35 g/dL (33-37); MEAN CORPUSCULAR VOLUME 88.6 fL (80-94); MONOCYTES # (AUTO) 0.7 K/uL (0.8-1.0); MONOCYTES % (AUTO) 10.7 % (1.7-9.3); NEUTROPHILS % (AUTO) 62.1 % (42.2-75.2); PLATELET COUNT (AUTO) 374 K/uL (140-450); RED CELL DISTRIBUTION WIDTH 14.1 % (11.6-13.7); WHITE BLOOD COUNT (AUTO) 6.4 K/uL (4.8-10.8)
[2022-03-04 06:25] LABS: ANION GAP 13.2 (8-16); CARBON DIOXIDE 25.2 mmol/L (21-32); CHLORIDE 108 mmol/L (98-107); CREATININE 0.8 mg/dL (0.6-1.3); GLUCOSE 91 mg/dL (74-106); POTASSIUM 3.4 mmol/L (3.5-5.1); SODIUM SERUM 143 mmol/L (136-145); UREA NITROGEN, BLOOD 7 mg/dL (7-18)
[2022-03-04] MEDS: NACL 0.9% 1,000 ML IV SCH ×3 (06:49→22:15)
[2022-03-04 08:00] VITALS: BP 171/65
[2022-03-04] MEDS: ASPIRIN 81 MG TAB.CHEW PO SCH (10:07)
[2022-03-04] MEDS: PANTOPRAZOLE 40 MG TABEC PO SCH (10:07)
[2022-03-04] MEDS: RIVAROXABAN 10 MG TAB PO SCH ×2 (10:08→21:12)
[2022-03-04] MEDS: lisinopriL 10 MG TAB PO SCH (10:09)
[2022-03-04 16:00] VITALS: BP 124/58
[2022-03-04] MEDS: POTASSIUM CHLORIDE 10 MEQ TABER PO PRN (17:14)
[2022-03-04] MEDS: MIRTAZAPINE 15 MG TAB PO SCH (21:11)
[2022-03-04] MEDS: ATORVASTATIN 20 MG TAB PO SCH (21:11)
[2022-03-05] MEDS: NACL 0.9% 1,000 ML IV SCH (02:32)
[2022-03-05 04:00] VITALS: BP 158/67
[2022-03-05 05:50] LABS: BASOPHILS % (AUTO) 0.7 % (0.0-2.0); EOSINOPHILS # (AUTO) 0.1 K/uL (0-0.4); EOSINOPHILS % (AUTO) 1.5 % (0.0-4.0); HEMATOCRIT 35.9 % (36-52); HEMOGLOBIN 12.3 g/dL (12.0-18.0); LYMPHOCYTES # (AUTO) 1.4 K/uL (2.0-11.5); LYMPHOCYTES % (AUTO) 21.3 % (20.5-51.1); MEAN CORPUSCULAR HEMOGLOBIN 30 pg (27-31); MEAN CORPUSCULAR HGB CONC 34 g/dL (33-37); MEAN CORPUSCULAR VOLUME 88.9 fL (80-94); MONOCYTES # (AUTO) 0.7 K/uL (0.8-1.0); NEUTROPHILS # (AUTO) 4.5 K/uL (1.8-7.7); NEUTROPHILS % (AUTO) 66.5 % (42.2-75.2); PLATELET COUNT (AUTO) 412 K/uL (140-450); RED BLOOD CELL COUNT(AUTO) 4.05 MIL/uL (4.20-6.10); RED CELL DISTRIBUTION WIDTH 13.9 % (11.6-13.7); WHITE BLOOD COUNT (AUTO) 6.7 K/uL (4.8-10.8)
[2022-03-05 07:21] LABS: ANION GAP 11.8 (8-16); CARBON DIOXIDE 25.4 mmol/L (21-32); CHLORIDE 107 mmol/L (98-107); CREATININE 0.7 mg/dL (0.6-1.3); GLUCOSE 74 mg/dL (74-106); POTASSIUM 3.2 mmol/L (3.5-5.1); SODIUM SERUM 141 mmol/L (136-145); UREA NITROGEN, BLOOD 6 mg/dL (7-18)
[2022-03-05] MEDS: PANTOPRAZOLE 40 MG TABEC PO SCH (09:00)
[2022-03-05] MEDS: ASPIRIN 81 MG TAB.CHEW PO SCH (09:00)
[2022-03-05] MEDS: RIVAROXABAN 10 MG TAB PO SCH (09:00)
[2022-03-05] MEDS: lisinopriL 10 MG TAB PO SCH (09:00)
[2022-03-05] MEDS ORDERED: NITR100C7 PO (09:10)
[2022-03-05] MEDS: POTASSIUM CHLORIDE 10 MEQ TABER PO PRN (10:56)
[2022-03-05 13:09] VITALS: BP 147/67
== END 2022-03-05 14:00 | DRG 177 ==
LOC: MED 17:30 → MERGE 21:41 → MMU 21:41 → MTU 02-28 01:21
PROVIDERS: ADMIT Family Medicine; ATTEND Family Medicine
DX: J69.0 Pneumonitis due to inhalation of food and vomit (principal); E43 Unspecified severe protein-calorie malnutrition; N17.0 Acute kidney failure with tubular necrosis; G93.41 Metabolic encephalopathy; N39.0 Urinary tract infection, site not specified; E86.0 Dehydration; E78.5 Hyperlipidemia, unspecified; D64.9 Anemia, unspecified; F03.90 Unspecified dementia, unspecified severity, without behavioral disturbance, psychotic disturbance, mood disturbance, and anxiety; I10 Essential (primary) hypertension; Z20.822 Contact with and (suspected) exposure to COVID-19; Z66 Do not resuscitate; I73.9 Peripheral vascular disease, unspecified; Z91.14 Patient's other noncompliance with medication regimen; Z68.24 Body mass index [BMI] 24.0-24.9, adult
CPT/HCPCS: 36415; 70450; 71045; 80048; 80053; 81001; 82150; 83036; 83690; 83735; 83880; 84100; 84436; 84439; 84443; 84479; 85025; 85610; 85730; 87081; 87086; 93005; 96360; 97110; 97163-GP; 99285; J2543; J7030; J7060; Q0092

== ENCOUNTER 2022-04-26 21:09 | Inpatient (IN) | payer OTHER ==
[~2022-04-26] VITALS: Ht 157.5 cm; Wt 44.9 kg
[2022-04-26 21:09] VITALS: BP 114/61
[~2022-04-26 21:09] MED LIST changes: +ASCO500T95 PO; +ASPI-1749 PO; +ATOR10TA PO; +COLC-30 PO; +DONE5TAB6 PO; +FURO-570 PO; +MIRT-92 PO; +MULT-2253 PO; +NITR100C7 PO; +NUTR30LI2 PO; +RIVA2.5T PO; +ZINC50CA3 PO; +[UNRECOGNIZED DRUG - CODE] PO; +[UNRECOGNIZED DRUG - CODE] PO; -[UNRECOGNIZED DRUG - CODE] PO
--- NOTE | 2022-04-26 21:12 | NUR ---
PT MONO BLS TO ER BED 06
--- NOTE | 2022-04-26 21:45 | NUR ---
LAB AT BEDSIDE
--- NOTE | 2022-04-26 22:00 | NUR ---
86 Y/O M PRESENTS WITH GENERALIZED WEAKNESS AND [facility] STATED PT REFUSED TO TAKE MEDS WHILE AT HIS SNF. PT IS A&OX1, SKIN INTACT. PMH-DEMENTIA NKA
[2022-04-26 22:08] LABS: BASOPHILS % (AUTO) 0.2 % (0.0-2.0); EOSINOPHILS % (AUTO) 0.2 % (0.0-4.0); HEMATOCRIT 29.7 % (36-52); HEMOGLOBIN 10.4 g/dL (12.0-18.0); LYMPHOCYTES # (AUTO) 0.6 K/uL (2.0-11.5); LYMPHOCYTES % (AUTO) 5.9 % (20.5-51.1); MEAN CORPUSCULAR HEMOGLOBIN 29 pg (27-31); MEAN CORPUSCULAR HGB CONC 35 g/dL (33-37); MEAN CORPUSCULAR VOLUME 81.5 fL (80-94); MONOCYTES # (AUTO) 0.6 K/uL (0.8-1.0); MONOCYTES % (AUTO) 5.8 % (1.7-9.3); NEUTROPHILS # (AUTO) 8.8 K/uL (1.8-7.7); NEUTROPHILS % (AUTO) 87.9 % (42.2-75.2); PLATELET COUNT (AUTO) 452 K/uL (140-450); RED BLOOD CELL COUNT(AUTO) 3.65 MIL/uL (4.20-6.10); RED CELL DISTRIBUTION WIDTH 14.8 % (11.6-13.7)
--- NOTE | 2022-04-26 22:11 | NUR ---
XRAY AT BEDSIDE
--- NOTE | 2022-04-26 22:16 | NUR ---
Dr. Gamino examining patient.
[2022-04-26 22:24] LABS: ANION GAP 15.1 (8-16); ASPARTATE AMINOTRANSFERASE 31 U/L (15-37); CARBON DIOXIDE 22.1 mmol/L (21-32); CHLORIDE 74 mmol/L (98-107); CREATININE 0.9 mg/dL (0.6-1.3); GLUCOSE 97 mg/dL (74-106); POTASSIUM 5.2 mmol/L (3.5-5.1); TOTAL BILIRUBIN 0.9 mg/dL (0.0-1.0); UREA NITROGEN, BLOOD 29 mg/dL (7-18)
[2022-04-26 22:25] LABS: SODIUM SERUM 106 mmol/L (136-145)
[2022-04-26] MEDS ORDERED: NACL 0.9% 1,000 ML IV ONE (22:25)
[2022-04-27 00:24] LABS: APPEARANCE,URINE CLEAR (CLEAR); BILIRUBIN,URINE NEGATIVE (NEGATIVE); BLOOD, URINE 3+ (NEGATIVE); COLOR,URINE YELLOW (YELLOW); LEUKOCYTE ESTERASE ,URINE 3+ (NEGATIVE); NITRITE, URINE NEGATIVE (NEGATIVE); UGLUCOSE NEGATIVE (NEGATIVE)
--- NOTE | 2022-04-27 00:30 | NUR ---
PT STRAIGHT CATH, UA COLLECTED AND SENT TO LAB
[2022-04-27 00:37] LABS: RBC,URINE 0-5 /HPF (0-5); WBC,URINE TOO MANY TO COUNT /HPF (0-5)
[2022-04-27] MEDS ORDERED: CEFEPIME 1,000 MG VIAL ONE (01:35)
[2022-04-27] MEDS: NACL 3% 500 ML IV SCH ×2 (03:00→13:55)
--- NOTE | 2022-04-27 03:25 | NUR ---
Chart checked and completed.
--- NOTE | 2022-04-27 03:25 | NUR ---
RECEIVED PATIENT FROM ER NURSE VIA [facility] FOR CONTINUITY OF CARE.PT IS ALERT ORIENTED X1. PIV ON RIGHT HAND 20 G INTACT AND PATENT. NO COMPLAIN OF PAIN.NO DISTRESS NOTED
--- NOTE | 2022-04-27 03:25 | NUR ---
Patient will be admitted to care of DR. LEUMS. Admited to TELE. Will go to [id number]. Belongings list completed. Report to OSIEL MARINELLI.
[2022-04-27 04:00] VITALS: BP 138/60
--- NOTE | 2022-04-27 05:45 | NUR ---
TEXTED MD REGARDING CODE STATUS AND DIET FOR THE PATIENT , MD SAID HE WILL GIVE DIET AFTER HIS FIRST ROUND. PT WILL BE FULL CODE
--- NOTE | 2022-04-27 07:30 | NUR ---
RECEIVED PATIENT FROM SILVER STEWARD NURSE.PATIENT IS SLEEPING IN BED.CHEST RISING AND FALLING EVENLY.ALL SAFETY MEASURES IN PLACE.NO OBVIOUS SIGNS OF DISTRESS NOTED.DIET ORDER PENDING.ENDORSED REPORT REGARDING IT FROM SILVER STEWARD NURSE.WILL CONTINUE TO MONITOR.
[2022-04-27 08:00] VITALS: BP 122/50
[2022-04-27] MEDS ORDERED: POTASSIUM CHLORIDE 10 MEQ TABER PO PRN (08:35)
[2022-04-27] MEDS ORDERED: DOCUSATE SODIUM 100 MG GELCAP PO PRN (08:35)
[2022-04-27] MEDS ORDERED: ZOLPIDEM 5 MG TAB PO PRN (08:35)
[2022-04-27] MEDS ORDERED: HYDROcodone/APAP 7.5/325 MG 1 TAB PO PRN (08:35)
[2022-04-27] MEDS ORDERED: ONDANSETRON 4 MG/2 ML VIAL IM/IVP PRN (08:35)
[2022-04-27] MEDS ORDERED: guaiFENesin DM 200/20 MG-10 ML 10 ML UDC PO PRN (08:35)
[2022-04-27] MEDS ORDERED: ACETAMINOPHEN 325 MG TAB PO PRN (08:35)
[2022-04-27] MEDS: PANTOPRAZOLE 40 MG TABEC PO SCH (09:00)
--- NOTE | 2022-04-27 09:00 | NUR ---
PATIENT REFUSING TO EAT BREAKFAST AND SPITTED OUT MORNING MED.RECEIVED CRITICAL LAB VALUE OF SODIUM 118.NOTIFIED
[2022-04-27 09:15] LABS: CHOL/HDL RATIO 4.5 (1-4.5); FREE T4 (FREE THYROXINE) 0.88 ng/dL (0.76-1.46); PHOSPHORUS 4.1 mg/dL (2.5-4.9); THYROID STIMULATING HORMONE 2.04 uIU/mL (0.34-3.74)
[2022-04-27 09:20] LABS: PROTHROMBIN TIME 10.4 secs (10.8-13.4)
[2022-04-27 09:29] LABS: ANION GAP 14.6 (8-16); CARBON DIOXIDE 21.3 mmol/L (21-32); CHLORIDE 87 mmol/L (98-107); CREATININE 0.9 mg/dL (0.6-1.3); GLUCOSE 89 mg/dL (74-106); POTASSIUM 4.9 mmol/L (3.5-5.1); UREA NITROGEN, BLOOD 26 mg/dL (7-18)
[2022-04-27 09:31] LABS: SODIUM SERUM 118 mmol/L (136-145)
--- NOTE | 2022-04-27 10:39 | NUR ---
PATIENT HAS BEEN SCREENED AND CATEGORIZED HIGH NUTRITION RISK. PATIENT WILL BE SEEN WITHIN 1-2 DAYS OF ADMISSION. [address]
[2022-04-27 12:00] VITALS: BP 137/66
--- NOTE | 2022-04-27 12:00 | NUR ---
FREQUENT ROUNDS DONE. TRIED FEEDING THE PATIENT, PATIENT REFUSING AND SPITTING THE FOOD AND SCHEDULED MEDICINES.PATIENT REFUSED CLEANING AND CHANGING THE LINEN.
--- NOTE | 2022-04-27 14:25 | NUR ---
PT. WITH LOW MESERET SCALE AT MODERATE TO HIGH RISK, CONTINUE TO FOLLOW PRESSURE INJURY PREVENTION INTERVENTIONS. -POSITIONING: TURN AND REPOSITION PATIENT Q 2H OR SOONER USE PILLOWS TO KEEP BONY PROMINENCES FROM DIRECT CONTACT WITH SURFACES USE REPOSITIONING WEDGES TO PROVIDE 30-DEGREE ANGLE FOR SIDE LYING POSITIONS OFFLOADING OR FOAM DRESSING TO ALL TUBING TO PREVENT MEDICAL DEVICES RELATED PRESSURE INJURY -RE-EVALUATING AND MANAGING INCONTINENCE MONITOR SKIN CONDITION DURING POSITION CHANGE DO NOT MASSAGE REDNESS, BONY PROMINENCES FREQUENT MENDOZA-CARE AND PROVIDE BARRIER CREAMS PRN IF SOILING MOISTURE CONTROL BY OFFER BED PERKINS/URINAL /ABSORBENT PAD TO WICK AND HOLD MOISTURE KEEP SKIN DRY AND PROTECT FROM FRICTION -MANAGE FRICTION/SHEAR/MOBILITY KEEP HOB AT THE LOWEST LEVEL OF ELEVATION NO MORE THAN 30 DEGREE UNLESS OTHERWISE CONTRAINDICATED USE LIFT SHEET OR TRANSFER DEVICE TO MOVE PATIENT AND PREVENT LATERAL SHEER. PROTECT HEELS, ELBOWS BONY PROMINENCES WITH SKIN BERRIES OR FOAM DRESSING IF EXPOSED TO FRICTION OFFLOAD BILATERAL HEELS BY PLACING PILLOWS UNDER CALVES AT ALL TIMES, UNLESS OTHERWISE CONTRAINDICATED -PRESSURE REDISTRIBUTION SURFACE THERAPY PARVIZ ISOFLEX MATTRESS -NUTRITION: PLEASE FOLLOW RD RECOMMENDATIONS AND OFFER NUTRITION SUPPLEMENTS IF ORDERED. PLEASE CONTACT WOUND CARE NURSE FOR ANY QUESTION AND CHANGE OF WOUND CONDITION.
[2022-04-27 16:00] VITALS: BP 134/67
--- NOTE | 2022-04-27 19:40 | NUR ---
ENDORSED THE PATIENT TO PROJECT ASSISTANT NURSE. ON 3% NORMAL SALINE.NO OTHER SIGNS OF DISTRESS NOTED.
--- NOTE | 2022-04-27 19:41 | NUR ---
RECEIVED REPORT FROM DAY SHIFT NURSE NASIM FOR CONTINUITY OF CARE. PT AWAKE IN BED. RESPIRATIONS EVEN AND UNLABORED ON RA. NO DISTRESS NOTED. ON FARM GENERAL MANAGER. POC DISCUSSED WITH PT AND RN LEYLA. CALL LIGHT WITHIN REACH. SAFETY PRECAUTIONS IN PLACE.
[2022-04-27 20:00] VITALS: BP 106/57
[2022-04-28] VITALS: BP 118/54
--- NOTE | 2022-04-28 00:03 | NUR ---
CHANGED PT DIAPER. TOLERATED WELL. PT REMAINED CLEAN AND DRY.
[2022-04-28 04:00] VITALS: BP 116/55
--- NOTE | 2022-04-28 04:00 | NUR ---
V/S TAKEN. DID MORNING CARE. PT TOLERATED WELL. NO COMPLAINTS OF PAIN. NO DISTRESS NOTED.
[2022-04-28 06:11] LABS: BASOPHILS % (AUTO) 0.2 % (0.0-2.0); HEMATOCRIT 28.9 % (36-52); LYMPHOCYTES # (AUTO) 0.6 K/uL (2.0-11.5); LYMPHOCYTES % (AUTO) 7.1 % (20.5-51.1); MEAN CORPUSCULAR HEMOGLOBIN 29 pg (27-31); MEAN CORPUSCULAR HGB CONC 35 g/dL (33-37); MEAN CORPUSCULAR VOLUME 83.2 fL (80-94); MONOCYTES # (AUTO) 0.6 K/uL (0.8-1.0); MONOCYTES % (AUTO) 6.9 % (1.7-9.3); NEUTROPHILS # (AUTO) 7.7 K/uL (1.8-7.7); NEUTROPHILS % (AUTO) 85.8 % (42.2-75.2); PLATELET COUNT (AUTO) 398 K/uL (140-450); RED BLOOD CELL COUNT(AUTO) 3.47 MIL/uL (4.20-6.10)
[2022-04-28 06:15] LABS: ANION GAP 16.6 (8-16); CARBON DIOXIDE 18.2 mmol/L (21-32); CHLORIDE 103 mmol/L (98-107); CREATININE 0.8 mg/dL (0.6-1.3); GLUCOSE 134 mg/dL (74-106); POTASSIUM 4.8 mmol/L (3.5-5.1); SODIUM SERUM 133 mmol/L (136-145); UREA NITROGEN, BLOOD 22 mg/dL (7-18)
[2022-04-28] MEDS: NACL 3% 500 ML IV SCH (06:27)
--- NOTE | 2022-04-28 07:19 | NUR ---
GAVE BEDSIDE REPORT TO [facility] ROUSE. PT IS STABLE.
--- NOTE | 2022-04-28 07:28 | NUR ---
RECEIVED PATIENT FROM INSPECTOR COLD WORKING NURSE.PATIENT SLEEPING IN BED.CHEST RISING AND FALLING EVEN.ALL SAFETY MEASURES IN PLACE.ON 3% NS 30ML/HR.POC DISCUSSED.WILL CONTINUE TO MONITOR.
[2022-04-28 08:00] VITALS: BP 138/54
--- NOTE | 2022-04-28 08:00 | NUR ---
FREQUENT ROUNDS DONE. TRIED FEEDING THE PATIENT WITH THE ASSISTANCE OF SPOOLING MACHINE OPERATOR. ASKED IN [place] IF WE CAN FEED HIM BREAKFAST PATIENT REFUSING.
[2022-04-28 08:08] LABS: T4 (THYROXINE) 7.3 ug/dL (4.5-12.0)
[2022-04-28] MEDS: PANTOPRAZOLE 40 MG TABEC PO SCH (09:00)
--- NOTE | 2022-04-28 09:30 | NUR ---
TRIED GIVING THE ORAL PILL CRUSHED AND GIVING WITH APPLESAUCE, PATIENT STILL REFUSING ORAL MED AND CLOSING THE MOUTH.
[2022-04-28 12:00] VITALS: BP 116/57
--- NOTE | 2022-04-28 15:07 | NUR ---
04/28/22 RD INITIAL ASSESSMENT COMPLETED PLEASE REFER TO NUTRITION ASSESSMENT UNDER CARE ACTIVITY FOR ESTIMATED NUTRITIONAL NEEDS. 1. RECOMMEND PUREE DIET WITH HEALTHSHAKES TID 2. MONITOR % PO INTAKE AND LAB VALUES -IF %PO INTAKE CONTINUES TO BE LOW, RECOMMEND SWALLOW EVAL 3. RD TO FOLLOW-UP 2-3 DAYS, HIGH RISK DAVION [address] RD
[2022-04-28 16:00] VITALS: BP 115/58
--- NOTE | 2022-04-28 18:09 | NUR ---
MODERATE NUTRITION RISK IDENTIFIED. CHANGED THE DIET TEXTURE TO PUREED, TRIED FEEDING THE DINNER. ATE ONLY 10% OF THE DINNER. REFUSING TO GET FED .NO BOWEL MOVEMENT NOTED DURING THE SHIFT.
[2022-04-28] MEDS: DEXTROSE 5% 1,000 ML IV SCH (18:15)
--- NOTE | 2022-04-28 19:27 | NUR ---
ENDORSED THE PATIENT TO QUARTZ CUTTER NURSE FOR CONTINUITY OF CARE.
--- NOTE | 2022-04-28 19:28 | NUR ---
RECEIVED REPORT FROM DAY SHIFT NURSE NASIM FOR CONTINUITY OF CARE. PT AWAKE IN BED. ON STAFF WRITER. RESPIRATIONS EVEN AND UNLABORED ON RA. NO DISTRESS NOTED. POC DISCUSSED WITH PT AND RN MAYITO. CALL LIGHT WITHIN REACH. SAFETY PRECAUTIONS IN PLACE.
[2022-04-28 20:00] VITALS: BP 113/51
--- NOTE | 2022-04-28 23:41 | NUR ---
DID ROUNDS. PT AWAKE. ASKED FOR WATER. PT SWALLOWED AND TOLERATED WELL.
[2022-04-29] VITALS: BP 138/48
[2022-04-29 04:00] VITALS: BP 116/69
[2022-04-29] MEDS: DEXTROSE 5% 1,000 ML IV SCH ×3 (04:27→17:51)
--- NOTE | 2022-04-29 04:27 | NUR ---
PT REMOVED GOWN, TRACK WATCHMAN AND IV LINE. IV CATHETER TIP WAS INTACT. DID MORNING CARE. NEW IV LINE INSERTED.
--- NOTE | 2022-04-29 05:03 | NUR ---
BLOOD DRAW FOR MORNING LAB WAS REFUSED PER GLASS CURVATURE GAUGER. RISKS AND BENEFITS WAS EXPLAINED BUT PT STILL REFUSED. WILL ENDORSE TO DAY SHIFT NURSE.
--- NOTE | 2022-04-29 07:16 | NUR ---
ENDORSED PT TO ISIS ORTIZ FOR CONTINUITY OF CARE. ALL NEEDS MET THROUGHOUT SHIFT. PT IS STABLE.
[2022-04-29 08:00] VITALS: BP 132/72
[2022-04-29] MEDS: PANTOPRAZOLE 40 MG TABEC PO SCH (10:12)
[2022-04-29 12:00] VITALS: BP 128/56
[2022-04-29 14:14] LABS: ALBUMIN 2.5 g/dL (3.4-5.0); ASPARTATE AMINOTRANSFERASE 25 U/L (15-37); CARBON DIOXIDE 22.2 mmol/L (21-32); CHLORIDE 102 mmol/L (98-107); CREATININE 0.9 mg/dL (0.6-1.3); GLUCOSE 150 mg/dL (74-106); POTASSIUM 4.2 mmol/L (3.5-5.1); SODIUM SERUM 131 mmol/L (136-145); TOTAL BILIRUBIN 0.3 mg/dL (0.0-1.0); UREA NITROGEN, BLOOD 12 mg/dL (7-18)
[2022-04-29 16:00] VITALS: BP 165/67
--- NOTE | 2022-04-29 19:40 | NUR ---
ENDORSE PATIENT IN STABLE CONDITION TO PM SHIFT NURSE WHILE PATIENT REST IN BED. PATIENT COME FROM [facility] FOR ABDOMEN DISTENSION AND DIAGNOSIS WITH HYPONATREMIA, UTI, FAILURE TO THRIVE. PATIENT HAS BEEN REFUSE EATING AND MEDS. PIV AT R. WRIST INFUSING D5 @150ML/HR
--- NOTE | 2022-04-29 19:41 | NUR ---
RECEIVED REPORT FROM ISIS ORTIZ FOR CONTINUITY OF CARE. PT AWAKE, EYES CLOSED IN BED. RESPIRATIONS EVEN AND UNLABORED ON RA. NO DISTRESS NOTED. ON [employer] REPORTER. IVF INFUSING. INITIAL ASSESSMENT DONE. POC DISCUSSED WITH PT AND ISIS LEGER. CALL LIGHT WITHIN REACH. SAFETY PRECAUTIONS IN PLACE.
[2022-04-29 20:00] VITALS: BP 144/70
--- NOTE | 2022-04-29 20:03 | NUR ---
V/S WAS TAKEN. WITHIN NORMAL LIMITS. CHECKED PTS NEEDS. PT STILL CLEAN AND DRY.
[2022-04-30] VITALS: BP 137/56
[2022-04-30] MEDS: DEXTROSE 5% 1,000 ML IV SCH ×5 (00:38→20:38)
[2022-04-30 04:00] VITALS: BP 117/46
--- NOTE | 2022-04-30 04:14 | NUR ---
V/S TAKEN. DID MORNING CARE. DIAPER WAS CHANGED. PT REMAINED CLEAN AND DRY.
[2022-04-30 05:23] LABS: BASOPHILS % (AUTO) 0.3 % (0.0-2.0); EOSINOPHILS # (AUTO) 0.1 K/uL (0-0.4); EOSINOPHILS % (AUTO) 0.9 % (0.0-4.0); HEMATOCRIT 21.5 % (36-52); HEMOGLOBIN 7.5 g/dL (12.0-18.0); LYMPHOCYTES # (AUTO) 0.8 K/uL (2.0-11.5); LYMPHOCYTES % (AUTO) 12.3 % (20.5-51.1); MEAN CORPUSCULAR HEMOGLOBIN 29 pg (27-31); MEAN CORPUSCULAR HGB CONC 35 g/dL (33-37); MEAN CORPUSCULAR VOLUME 82.3 fL (80-94); MONOCYTES # (AUTO) 0.7 K/uL (0.8-1.0); NEUTROPHILS # (AUTO) 5.1 K/uL (1.8-7.7); NEUTROPHILS % (AUTO) 76.5 % (42.2-75.2); PLATELET COUNT (AUTO) 294 K/uL (140-450); RED BLOOD CELL COUNT(AUTO) 2.61 MIL/uL (4.20-6.10); WHITE BLOOD COUNT (AUTO) 6.7 K/uL (4.8-10.8)
[2022-04-30 05:30] LABS: ANION GAP 11.8 (8-16); CHLORIDE 94 mmol/L (98-107); CREATININE 0.6 mg/dL (0.6-1.3); GLUCOSE 100 mg/dL (74-106); POTASSIUM 3.8 mmol/L (3.5-5.1); SODIUM SERUM 125 mmol/L (136-145); UREA NITROGEN, BLOOD 7 mg/dL (7-18)
--- NOTE | 2022-04-30 07:00 | NUR ---
GAVE BEDSIDE REPORT TO ISIS ORTIZ FOR CONTINUITY OF CARE. PT IN STABLE CONDITION.
[2022-04-30 08:00] VITALS: BP 129/60
[2022-04-30] MEDS: PANTOPRAZOLE 40 MG TABEC PO SCH (09:00)
[2022-04-30] MEDS ORDERED: MAG SULF 2000 MG/WATER PREMIX 50 ML IV SCH (09:00)
[2022-04-30 12:00] VITALS: BP 125/85
[2022-04-30] MEDS ORDERED: PIPERACILLIN/TAZOBACTAM 2.25 GM in DEXTROSE 5% 50 ML IV SCH (12:00)
[2022-04-30] MEDS ORDERED: PIPERACILLIN/TAZOBACTAM 3.375 GM in DEXTROSE 5% 50 ML IV SCH (13:00)
--- NOTE | 2022-04-30 15:07 | NUR ---
DC PLANNING UZMA OUTREACHED TO TO GATHER COLLATERAL INFORMATION. SPOKE WITH GERA DRIVER WHO REPORTS PATIENT IS IN PRISON CARE WITH FACILITY, ADMISSION DATE 08/30/2018. NEISHA REPORTS PT HAS ADV, NAMING AGENT IS NOBLE VELASQUEZ, FRIEND, . PT IS REPORTED TO BE MINIMALLY VERBAL. PT IS REPORTED TO BE AMBULATORY WITH DME ASSISTANCE; FWW AND REQUIRES ASSISTANCE WITH ADL'S. NEISHA REPORTS PT HAS HX OF DEPRESSION AND DEMENTIA. PT IS REPORTED TO MEET WITH PSYCHIATRIST 1X MONTHLY. NEISHA REPORTS PT HAS HX OF HALLUCINATIONS AND PARANOIA. PT IS REPORTED TO HAVE DAUGHTER, HOWEVER, DAUGHTER IS REPORTED NOT BE INVOLVED IN CARE. NEISHA REPORTS PT IS NOT [facility]ENTER CONNECTED. PT IS TYPICALLY COMPLIANT WITH CARE HOWEVER, BEGAN REFUSING MEDICATION AND EATING BEFORE BEING ADMITTED. NEISHA REPORTS DC PLAN IS FOR PT TO RETURN TO [facility] , WHEN MEDICALLY STABLE. OUTREACHED TO PTS NOBLE HENDERSON [phone] TO INQUIRE ON PT RETURNING TO [facility]. NOBLE INQUIRING ON INTERVENTIONS. ENDORSED TO NOBLE CLINICAL QUESTIONS CAN BE ANSWERED BY PATIENTS CARE TEAM. NOBLE REQUESTING CLINICAL UPDATE BY DR. GUSMAN ATTEMPTED TO EXPLAIN HOSPICE CARE TO CAREGIVER HOWEVER, CAREGIVER STILL INQUIRING ON MEDICAL INTERVENTIONS. ENDORSED TO ESTEBAN WHO ENDORSED TO ATTENDING PHYSICIANS. Addendum: 04/30/22 at 1510 by Toma CLAYTON Amended: Links added. Addendum: 05/01/22 at 1418 by EVE LOUIS CM RECIEVED [facility] FOR HOSPICE. HOSPICE PACKET FAXED TO [facility] . SPOKE WITH IVÁN AT [facility] PT WAS ACCEPTED AND WILL BE GOING TO ROOM 12-A AT [facility]. TRANSPORTATION SETUP WITH MARIAN KATY WITH A 1800 BOX PRESS OPERATOR TIME. NURSE LYDIA AND PTN NOBLE NOTIFIED OF THE ABOVE INFORMATION
[2022-04-30 16:00] VITALS: BP_SYST 141; BP_SYST 164; BP_DIAS 55; BP_DIAS 88
--- NOTE | 2022-04-30 19:22 | NUR ---
ENDORSE PATIENT IN STABLE CONDITION TO PM SHIFT NURSE THAT PIV D5 INFUSING AT 1500 VIA R. FOREARM 20G PIV SITE. ID SEE PATIENT.
--- NOTE | 2022-04-30 19:23 | NUR ---
RECEIVED REPORT FROM ISIS ORTIZ FOR CONTINUITY OF CARE. PT AWAKE IN BED, EYES CLOSED. BREATHING EVEN AND UNLABORED ON RA. NO SIGNS OF DISCOMFORT NOTED. ON SUMO WRESTLER. IVF INFUSING. INITIAL ASSESSMENT DONE. POC DISCUSSED WITH PT AND ISIS JIMENES. CALL LIGHT WITHIN REACH. SAFETY PRECAUTIONS IN PLACE.
[2022-04-30 20:00] VITALS: BP 133/70
--- NOTE | 2022-04-30 20:00 | NUR ---
Patient's Plan of Care was discussed and reviewed with ERNESTO NAVA:
[2022-04-30] MEDS: MEROPENEM 1,000 MG in NACL 0.9% 50 ML IV SCH (20:27)
[2022-05-01] VITALS: BP 137/62
[2022-05-01] MEDS: DEXTROSE 5% 1,000 ML IV SCH ×3 (00:49→07:59)
[2022-05-01 04:00] VITALS: BP 136/58
[2022-05-01] MEDS: MEROPENEM 1,000 MG in NACL 0.9% 50 ML IV SCH ×2 (04:11→12:37)
--- NOTE | 2022-05-01 05:07 | NUR ---
DID MORNING CARE. PT TOLERATED WELL. NO DISCOMFORT/DISTRESS NOTED. PT REMAINED CLEAN AND DRY.
[2022-05-01 06:15] LABS: BASOPHILS % (AUTO) 0.4 % (0.0-2.0); EOSINOPHILS # (AUTO) 0.1 K/uL (0-0.4); EOSINOPHILS % (AUTO) 1.2 % (0.0-4.0); HEMATOCRIT 23.9 % (36-52); HEMOGLOBIN 8.3 g/dL (12.0-18.0); LYMPHOCYTES # (AUTO) 0.8 K/uL (2.0-11.5); MEAN CORPUSCULAR HEMOGLOBIN 29 pg (27-31); MEAN CORPUSCULAR HGB CONC 35 g/dL (33-37); MEAN CORPUSCULAR VOLUME 82.2 fL (80-94); MONOCYTES # (AUTO) 0.7 K/uL (0.8-1.0); MONOCYTES % (AUTO) 9.3 % (1.7-9.3); NEUTROPHILS % (AUTO) 79.1 % (42.2-75.2); PLATELET COUNT (AUTO) 282 K/uL (140-450); RED CELL DISTRIBUTION WIDTH 15.2 % (11.6-13.7); WHITE BLOOD COUNT (AUTO) 7.6 K/uL (4.8-10.8)
[2022-05-01 06:43] LABS: CARBON DIOXIDE 25.9 mmol/L (21-32); CHLORIDE 92 mmol/L (98-107); CREATININE 0.7 mg/dL (0.6-1.3); POTASSIUM 3.9 mmol/L (3.5-5.1); SODIUM SERUM 124 mmol/L (136-145); UREA NITROGEN, BLOOD 6 mg/dL (7-18)
--- NOTE | 2022-05-01 07:03 | NUR ---
GAVE BEDSIDE REPORT TO ELIJAH LIMON FOR CONTINUITY OF CARE. ALL NEEDS MET THROUGHOUT SHIFT. PT IS STABLE.
--- NOTE | 2022-05-01 07:03 | NUR ---
ASSUMED CONTINUITY OF CARE. INITIAL ASSESSMENT DONE. RE-ORIENTED TO EVENTS AND SURROUNDINGS. KEEP COMFORTABLE ON BED. CONTACT ISOLATION AND FALL PRECAUTION APPLIED. CALL LIGHT WITHIN REACH.
[2022-05-01 07:20] LABS: GLUCOSE 111 mg/dL (74-106)
--- NOTE | 2022-05-01 07:42 | NUR ---
PAGED DR. FARRIS REGARDING PT. MAG 1.4. INFORMED CHARGE NURSE LYDIA -RN.
[2022-05-01 08:00] VITALS: BP 130/56
[2022-05-01] MEDS ORDERED: MAG SULF 2000 MG/WATER PREMIX 50 ML IV SCH (08:00)
[2022-05-01] MEDS: PANTOPRAZOLE 40 MG TABEC PO SCH (09:00)
--- NOTE | 2022-05-01 09:00 | NUR ---
NON-COMPLIANT. REFUSED SCHEDULED MEDICINE -PROTONIX 40 MG PO DAILY. INFORMED CHARGE NURSE ADZE -RN.
[2022-05-01] MEDS ORDERED: DOCU-299 PO (10:45)
[2022-05-01] MEDS ORDERED: MERO1VIA15 IV (10:45)
[2022-05-01 12:00] VITALS: BP 156/50
--- NOTE | 2022-05-01 13:38 | NUR ---
05/01/22 RD FOLLOW UP COMPLETED PLEASE REFER TO NUTRITION ASSESSMENT UNDER CARE ACTIVITY FOR ESTIMATED NUTRITIONAL NEEDS. 1. CONTINUE PUREE DIET, TOLERATED 2. RECOMMEND ENSURE BID 3. MONITOR % PO INTAKE AND LAB VALUES -IF %PO INTAKE CONTINUES TO BE LOW, RECOMMEND SWALLOW EVAL 4. RD TO FOLLOW-UP 2-3 DAYS, HIGH RISK REVIEWED BY DAVION TROY RD
--- NOTE | 2022-05-01 14:38 | NUR ---
CALLED BECCA GALLARDO AT SPOKE TO JERRI AND GAVE REPORT REGARDING PT. TRANSFER BACK TO THE FACILITY. INFORMED CHARGE NURSE LYDIA -ISIS.
--- NOTE | 2022-05-01 14:45 | NUR ---
CALLED NOBLE VELASQUEZ AT AND MADE AWARE OF PT. TRANSFER TO [facility].
[2022-05-01 16:00] VITALS: BP 121/58
--- NOTE | 2022-05-01 19:14 | NUR ---
D/C TO [facility] GALLARDO VIA [facility] WITH MEDICAL TRANSPORTER. IN STABLE CONDITION. INFORMED CHARGE NURSE LYDIA -ISIS.
== END 2022-05-01 19:15 | DRG 640 ==
LOC: MED 21:09 → MTU 04-27 02:20
PROVIDERS: ADMIT Family Medicine; ATTEND Family Medicine
DX: E87.1 Hypo-osmolality and hyponatremia (principal); G93.41 Metabolic encephalopathy; E44.0 Moderate protein-calorie malnutrition; Z16.12 Extended spectrum beta lactamase (ESBL) resistance; N39.0 Urinary tract infection, site not specified; Z68.1 Body mass index [BMI] 19.9 or less, adult; B96.20 Unspecified Escherichia coli [E. coli] as the cause of diseases classified elsewhere; I10 Essential (primary) hypertension; M19.90 Unspecified osteoarthritis, unspecified site; Z20.822 Contact with and (suspected) exposure to COVID-19; E78.2 Mixed hyperlipidemia; D64.9 Anemia, unspecified; Z79.82 Long term (current) use of aspirin; E87.5 Hyperkalemia
CPT/HCPCS: 36415; 71045; 80048; 80053; 81001; 82150; 83036; 83605; 83690; 83735; 83880; 84100; 84436; 84439; 84443; 84479; 84484; 85025; 85610; 85730; 87081; 87086; 93005; 96361; 96365; 99291; J0692; J0696; J2185; J2543; J3475; J3490; J7060; Q0092